=== PATIENT | male | born 1980 | race Caucasian/White ===

== ENCOUNTER 2021-08-16 04:07 | Inpatient (IN) | payer OTHER ==
[2021-08-16] MEDS ORDERED: hydrALAZINE 20 MG/ML VIAL SLOW IVP PRN (04:17)
[2021-08-16] MEDS ORDERED: Dextrose 50% Abboject 50 ML SYRINGE SLOW IVP PRN (04:17)
[2021-08-16] MEDS ORDERED: Ondansetron ODT 4 MG TAB PO PRN (04:17)
[2021-08-16] MEDS ORDERED: traMADol HCl 50 MG TAB PO PRN ×2 (04:20)
[2021-08-16 04:55] LABS: #Lymphocytes 1.3 thou/uL (1.20-3.40); #Monocytes 1.2 thou/uL (0.11-0.59); #Neutrophils 16.3 thou/uL (1.40-6.50); %Eosinophils 0.1 % (0.0-10.0); %Lymphocytes 6.8 % (21.0-51.0); %Monocytes 6.4 % (0.0-10.0); %Neutrophils 86.5 % (42.0-75.0); Hemoglobin 15.6 g/dL (14.0-18.0); Mean Corpuscular HGB CONC 32.3 g/dL (32.0-36.0); Mean Corpuscular Hemoglobin 30.2 pg (27.0-31.0); Mean Corpuscular Volume 93.6 fL (78.0-98.0); Mean Platelet Volume 7.9 fL (7.4-10.4); Platelet Count 266 thou/uL (130-400); RBC Distribution Width 12.3 % (11.5-14.5); Red Blood Cell (RBC) Count 5.16 mill/uL (4.70-6.10); White Blood Cell (WBC) Count 18.9 thou/uL (4.8-10.8)
[2021-08-16 05:09] LABS: Lactic Acid 2.6 mmol/L (0.5-2.2)
[2021-08-16 05:10] LABS: ALT (SGPT) 15 U/L (8-55); AST (SGOT) 23 U/L (5-34); Albumin 3.8 g/dL (3.5-5.0); Alkaline Phosphatase 48 U/L (40-110); Anion Gap 17 mmol/L (10-20); BUN (Urea Nitrogen) 39 mg/dL (8.9-20.6); Bilirubin, Total 1.2 mg/dL (0.2-1.2); Calc. Creatinine Clearance 0 mL/min (70-130); Calcium 7.8 mg/dL (7.8-10.44); Carbon Dioxide 13 mmol/L (22-29); Chloride 107 mmol/L (98-107); Globulin 2.7 g/dL (2.4-3.5); Glucose 175 mg/dL (70-105); Magnesium 1.7 mg/dL (1.6-2.6); Phosphorus 3.6 mg/dL (2.3-4.7); Potassium 5.4 mmol/L (3.5-5.1); Protein, Total 6.5 g/dL (6.0-8.3); Sodium 132 mmol/L (136-145)
[2021-08-16] MEDS ORDERED: Morphine 4 MG/ML VIAL ONE ×5 (05:27→14:51)
[2021-08-16] MEDS ORDERED: Acetaminophen 325 MG TAB ONE ×2 (05:27→13:57)
[2021-08-16] MEDS: Acetaminophen 325 MG TAB PO SCH ×4 (05:39→19:38)
[2021-08-16] MEDS: Sodium Chloride 0.9% 1,000 ML IV SCH ×4 (05:40→19:37)
[2021-08-16] MEDS: Morphine 4 MG/ML VIAL SLOW IVP PRN ×6 (05:40→23:14)
[2021-08-16] MEDS ORDERED: traMADol HCl 50 MG TAB ONE (07:23)
[2021-08-16] MEDS: Famotidine/PF 20 mg/2ml Vial SLOW IVP SCH ×2 (10:00→19:38)
[2021-08-16 13:30] LABS: Hemoglobin 15.9 g/dL (14.0-18.0); Mean Corpuscular HGB CONC 33.8 g/dL (32.0-36.0); Mean Corpuscular Hemoglobin 31.7 pg (27.0-31.0); Mean Corpuscular Volume 93.8 fL (78.0-98.0); Mean Platelet Volume 8.2 fL (7.4-10.4); Platelet Count 259 thou/uL (130-400); RBC Distribution Width 12.6 % (11.5-14.5); Red Blood Cell (RBC) Count 5.02 mill/uL (4.70-6.10); White Blood Cell (WBC) Count 10.9 thou/uL (4.8-10.8)
[2021-08-16 13:48] LABS: Phosphorus 4.1 mg/dL (2.3-4.7)
[2021-08-16 13:56] LABS: MDiff Complete? YES
[2021-08-16 13:57] LABS: Band 55 % (5-11); Lymphocytes 8 % (21-51); Metamyelocyte 5 % (0-0); Monocytes 12 % (0-10); Myelocyte 2 % (0-0); Neutrophil 16 % (42-75); Platelet Morphology Comment Appears Adequate; Polychromasia SLIGHT = 2-3 cells (100X) (0-2/hpf); Reactive Lymphocytes 2 % (0-10); Reflex for Review?? YES
[2021-08-16 14:03] LABS: Anion Gap 17 mmol/L (10-20); BUN (Urea Nitrogen) 47 mg/dL (8.9-20.6); Calc. Creatinine Clearance 0 mL/min (70-130); Calcium 7.9 mg/dL (7.8-10.44); Carbon Dioxide 17 mmol/L (22-29); Chloride 105 mmol/L (98-107); Glucose 182 mg/dL (70-105); Magnesium 1.7 mg/dL (1.6-2.6); Potassium 5.2 mmol/L (3.5-5.1); Sodium 134 mmol/L (136-145)
[2021-08-16] MEDS ORDERED: Tamsulosin HCl 0.4 MG CAP PO SCH (15:30)
[2021-08-16 15:40] LABS: Bacteria/HPF None Seen HPF (None Seen); Bilirubin Negative (Negative); Blood, Urine 1+ (Negative); Clarity Clear (Clear); Glucose, Urine (Dipstick) Normal (Negative); Ketone, Urine Trace mg/dL (Negative); Leukocyte Negative Leu/uL (Negative); Nitrite Negative (Negative); Protein, Urine (Dipstick) 30 mg/dL (Neg-Trace); RBC/HPF 0-3 HPF (0-3); Specific Gravity, Urine 1.049 (1.002-1.036); Squamous Epithelial 0-3 HPF (0-3); Urobilinogen Normal mg/dL (Less than 2); WBC/HPF 0-3 HPF (0-3); pH, Urine 5.5 (5.0-9.0)
[2021-08-16 15:45] LABS: Urine Culture Reflex No No
[2021-08-16] MEDS ORDERED: Calcium Carbonate 500 MG ChewTAB PO PRN (17:43)
[2021-08-16] MEDS: traMADol HCl 50 MG TAB PO SCH ×3 (18:52→22:12)
[2021-08-16] MEDS: Tamsulosin HCl 0.4 MG CAP PO SCH (19:37)
[2021-08-16] MEDS: Cyclobenzaprine 10 MG TAB PO PRN (23:43)
[2021-08-17] MEDS: Morphine 4 MG/ML VIAL SLOW IVP PRN ×4 (01:05→06:33)
[2021-08-17] MEDS: traMADol HCl 50 MG TAB PO SCH ×3 (02:45→15:49)
[2021-08-17] MEDS: Ondansetron PF 4 MG/2 ML Vial IVP PRN (03:00)
[2021-08-17] MEDS: Acetaminophen 325 MG TAB PO SCH ×3 (04:46→18:05)
[2021-08-17] MEDS: Cyclobenzaprine 10 MG TAB PO PRN (06:36)
[2021-08-17 08:55] LABS: Chloride 107 mmol/L (98-107); Potassium 5.9 mmol/L (3.5-5.1); Sodium 133 mmol/L (136-145)
[2021-08-17 08:56] LABS: Calcium 8.4 mg/dL (7.8-10.44); Glucose 105 mg/dL (70-105)
[2021-08-17 08:58] LABS: Anion Gap 21 mmol/L (10-20); Carbon Dioxide 11 mmol/L (22-29)
[2021-08-17 09:00] LABS: BUN (Urea Nitrogen) 73 mg/dL (8.9-20.6); Calc. Creatinine Clearance 43 mL/min (70-130)
[2021-08-17 09:07] LABS: Hemoglobin 16.4 g/dL (14.0-18.0); Mean Corpuscular Hemoglobin 31.6 pg (27.0-31.0); Mean Corpuscular Volume 95.8 fL (78.0-98.0); Platelet Count 189 thou/uL (130-400); RBC Distribution Width 13.1 % (11.5-14.5); Red Blood Cell (RBC) Count 5.19 mill/uL (4.70-6.10); White Blood Cell (WBC) Count 6.2 thou/uL (4.8-10.8)
[2021-08-17 09:40] LABS: Magnesium 1.6 mg/dL (1.6-2.6); Phosphorus 5.1 mg/dL (2.3-4.7)
[2021-08-17 09:41] LABS: Band 48 % (5-11); Burr Cells MODERATE= 6-15 cells (100X) (0-1/hpf); Dohle Bodies SLIGHT; Lymphocytes 14 % (21-51); MDiff Complete? YES; Metamyelocyte 15 % (0-0); Monocytes 12 % (0-10); Myelocyte 4 % (0-0); Neutrophil 4 % (42-75); Platelet Morphology Comment Appears Adequate; Polychromasia SLIGHT = 2-3 cells (100X) (0-2/hpf); Reactive Lymphocytes 3 % (0-10); Reflex for Review?? YES; Vacuoles MODERATE
[2021-08-17] MEDS: Famotidine/PF 20 mg/2ml Vial SLOW IVP SCH (09:48)
[2021-08-17] MEDS ORDERED: Sodium Chloride 0.9% 500 ML IV SCH (10:15)
[2021-08-17] MEDS ORDERED: Sodium Bicarb 50 MEQ/50 ML Abboject 8.4% SYRINGE IVP SCH (12:15)
[2021-08-17 13:43] LABS: HBSAg Index 0.22 S/CO (0-0.99); Hep B Surf Ag Non-Reactive S/CO (NonReactive)
[2021-08-17 13:43] LABS: INR-International Normal Ratio 2.1; PTT 44.6 sec (22.9-36.1); Prothrombin Time 23.8 sec (12.0-14.7)
[2021-08-17] MEDS ORDERED: EPINEPHrine 1 MG/ML AMP ONE (13:52)
[2021-08-17] MEDS ORDERED: Bupivacaine 0.25% HCL 30 ML VIAL ONE (13:52)
[2021-08-17 13:57] LABS: Lactic Acid 8.8 mmol/L (0.5-2.2)
[2021-08-17] MEDS ORDERED: ceFAZolin 2 GM/DEX 5% 100 ML BAG ONE (14:14)
[2021-08-17] MEDS ORDERED: Fentanyl 250 MCG/5 ML VIAL ONE (14:27)
[2021-08-17] MEDS ORDERED: Lidocaine 2% Jelly 5 ML TUBE ONE (14:27)
[2021-08-17] MEDS ORDERED: Lidocaine 1% PF 5 ML VIAL ONE (14:40)
[2021-08-17] MEDS ORDERED: Vecuronium 10 MG VIAL ONE (14:40)
[2021-08-17] MEDS ORDERED: PHENYLEPHRINE-NS 100 MCG/ML 10 ML SYRINGE ONE (14:40)
[2021-08-17] MEDS ORDERED: Rocuronium Bromide 10 MG/ML (10ML VIAL) ONE (14:40)
[2021-08-17] MEDS ORDERED: Phenylephrine 10 MG/ML VIAL ONE (15:05)
[2021-08-17] MEDS ORDERED: Norepinephrine 4 MG/4 ML VIAL ONE (15:15)
[2021-08-17 15:21] LABS: Hep A IgM AB Non-Reactive (NonReactive); Hep C IgG Ab Non-Reactive (NonReactive); Hep C Index 0.03 S/CO (0-0.79)
[2021-08-17 15:22] LABS: HBCM Index 0.07 S/CO (0-0.79); Hepatitis B Core IgM Abs Non-Reactive (NonReactive)
[2021-08-17] MEDS: Sodium Chloride 0.9% 1,000 ML IV SCH (15:50)
[2021-08-17] MEDS ORDERED: Sodium Chloride 0.9% 20 ML ONE (15:55)
[2021-08-17] MEDS ORDERED: Albumin 5% 500 ML ONE (16:05)
[2021-08-17] MEDS ORDERED: Midazolam HCl 2 mg/2 ml Vial ONE (16:41)
[2021-08-17] MEDS ORDERED: Sodium Bicarbonate 2.5 MEQ/5 ML VIAL ONE (16:47)
[2021-08-17] MEDS ORDERED: Dextrose 50% Abboject 50 ML SYRINGE ONE (16:47)
[2021-08-17] MEDS ORDERED: Sodium Bicarb 50 MEQ/50 ML Abboject 8.4% SYRINGE ONE ×2 (16:47→17:44)
[2021-08-17] MEDS ORDERED: Ventilator Sedation Protocol 1 EACH FS ONE (17:24)
[2021-08-17] MEDS ORDERED: Propofol 1,000 MG/100 ML VIAL IV ONE (17:30)
[2021-08-17] MEDS ORDERED: Fentanyl 100 MCG/2 ML VIAL ONE (17:30)
[2021-08-17 17:33] LABS: Base Excess (BEa) -10.9 mEq/L (-2.0 to +3.0); CO2 Tension 54.2 mmHg (35.0-45.0); Calcium, Ionized (arterial) 1.07 mmol/L (1.12-1.30); Carboxyhemoglobin (COHb) 1.7 gm% (0.0-3.0); Potassium - ABG Lab 4.03 mmol/L (3.70-5.30)
[2021-08-17 17:34] LABS: pH, Arterial 7.14 (7.35-7.45)
[2021-08-17 17:35] LABS: Puncture Site Arterial Line
[2021-08-17] MEDS ORDERED: DISCONTINUE PREVIOUS NARCOTIC PAIN MEDICATIONS AND BENZODIAZEPINES FS SCH (17:45)
[2021-08-17] MEDS ORDERED: Morphine 2 MG/ML VIAL SLOW IVP PRN (17:45)
[2021-08-17] MEDS ORDERED: Morphine 4 MG/ML VIAL SLOW IVP PRN (17:45)
[2021-08-17] MEDS ORDERED: Propofol BOLUS 1,000 MG/100 ML VIAL IV PRN (17:45)
[2021-08-17] MEDS ORDERED: Fentanyl BOLUS 250 ML IVPB PRN (17:45)
[2021-08-17] MEDS ORDERED: Calcium Chloride 1 GM/10 ML Abboject SYRINGE ONE (17:45)
[2021-08-17] MEDS ORDERED: Lorazepam 2 MG/ML VIAL SLOW IVP PRN (17:45)
[2021-08-17] MEDS: Propofol 1,000 MG/100 ML VIAL IV PRN (17:45)
[2021-08-17] MEDS ORDERED: Fentanyl CADD 100 ML ONE (17:46)
[2021-08-17] MEDS: Fentanyl CADD 100 ML IV SCH (17:51)
[2021-08-17 17:55] LABS: Hemoglobin 12.5 g/dL (14.0-18.0); Mean Corpuscular HGB CONC 33.7 g/dL (32.0-36.0); Mean Corpuscular Hemoglobin 32.4 pg (27.0-31.0); Platelet Count 127 thou/uL (130-400); RBC Distribution Width 12.9 % (11.5-14.5); Red Blood Cell (RBC) Count 3.85 mill/uL (4.70-6.10); White Blood Cell (WBC) Count 2.2 thou/uL (4.8-10.8)
[2021-08-17] MEDS ORDERED: Piperacillin/Tazobactam 3.375 GM in Sodium Chloride 0.9% 100 ML IVPB SCH (18:00)
[2021-08-17 18:14] LABS: Lactic Acid 7.5 mmol/L (0.5-2.2)
[2021-08-17 18:15] LABS: ALT (SGPT) 35 U/L (8-55); AST (SGOT) 58 U/L (5-34); Albumin 2.2 g/dL (3.5-5.0); Alkaline Phosphatase 44 U/L (40-110); Anion Gap 17 mmol/L (10-20); BUN (Urea Nitrogen) 61 mg/dL (8.9-20.6); Bilirubin, Total 1.2 mg/dL (0.2-1.2); Calc. Creatinine Clearance 47 mL/min (70-130); Carbon Dioxide 16 mmol/L (22-29); Chloride 110 mmol/L (98-107); Glucose 85 mg/dL (70-105); Magnesium 1.6 mg/dL (1.6-2.6); Phosphorus 5.2 mg/dL (2.3-4.7); Potassium 4.2 mmol/L (3.5-5.1); Protein, Total 3.2 g/dL (6.0-8.3); Sodium 139 mmol/L (136-145)
[2021-08-17] MEDS ORDERED: ceFAZolin Sodium/D5W 2 GM in Premix Bag 1 BAG IVPB SCH (18:15)
[2021-08-17 18:22] LABS: Band 63 % (5-11); Burr Cells SLIGHT = 2-5 cells (100X) (0-1/hpf); Lymphocytes 15 % (21-51); MDiff Complete? YES; Metamyelocyte 4 % (0-0); Monocytes 12 % (0-10); Myelocyte 1 % (0-0); Neutrophil 5 % (42-75); Platelet Morphology Comment Appears Decreased; Polychromasia SLIGHT = 2-3 cells (100X) (0-2/hpf)
[2021-08-17] MEDS ORDERED: Norepinephrine 8 MG/0.9% NS 250 ML IVPB SCH (18:30)
[2021-08-17] MEDS ORDERED: Hydrocortisone Sod Succ/PF 100 mg/2 ml Vial IVP SCH (18:30)
[2021-08-17 18:38] LABS: Actual Bicarbonate (HCO3a) 18.9 mEq/L (22-28); Base Excess (BEa) -7.5 mEq/L (-2.0 to +3.0); CO2 Tension 42.3 mmHg (35.0-45.0); Calcium, Ionized (arterial) 1.24 mmol/L (1.12-1.30); Carboxyhemoglobin (COHb) 1.2 gm% (0.0-3.0); Hemoglobin (Hb) 10.8 g/dL (14.0-18.0); O2 Tension (PaO2), arterial 64.1 mmHg (80.0-100.0); Potassium - ABG Lab 3.91 mmol/L (3.70-5.30); pH, Arterial 7.27 (7.35-7.45)
[2021-08-17 18:40] LABS: Puncture Site Arterial Line
[2021-08-17 18:41] LABS: ALV-art Gradient 596.025 mmHg (0-20)
[2021-08-17] MEDS ORDERED: Sodium Chloride 0.9% 1,000 ML IV SCH (18:45)
[2021-08-17] MEDS: Sodium Bicarbonate 150 MEQ in Dextrose 5% in Water 1,000 ML IV SCH (19:02)
[2021-08-17] MEDS: Tamsulosin HCl 0.4 MG CAP PO SCH (20:35)
[2021-08-17] MEDS ORDERED: Dextrose 50% Abboject 50 ML SYRINGE SLOW IVP SCH (20:45)
[2021-08-17] MEDS: Norepinephrine 8 MG in Dextrose 5% in Water 242 ML IVPB SCH (20:50)
[2021-08-17] MEDS: Piperacillin/Tazobactam 3.375 GM in Sodium Chloride 0.9% 100 ML IVPB SCH (21:07)
[2021-08-17 21:39] LABS: Hemoglobin 10.9 g/dL (14.0-18.0); Platelet Count 123 thou/uL (130-400)
[2021-08-17 21:51] LABS: Fibrinogen 497 mg/dL (253-463)
[2021-08-17 21:52] LABS: INR-International Normal Ratio 2.4; PTT 56.2 sec (22.9-36.1); Prothrombin Time 26.3 sec (12.0-14.7)
[2021-08-17 21:53] LABS: D-Dimer Test 3.37 *mcg/mL (0.27-0.43)
[2021-08-17 22:19] LABS: FSP-Qualitative ABNORMAL (Normal); FSP-Semiquantitative >=5 & <20 mcg/mL (Less than 5)
[2021-08-17 22:21] LABS: Platelet Count 123 thou/uL (130-400)
[2021-08-18] MEDS: Hydrocortisone Sod Succ/PF 100 mg/2 ml Vial IVP SCH ×5 (00:51→23:50)
[2021-08-18] MEDS: Sodium Bicarbonate 150 MEQ in Dextrose 5% in Water 1,000 ML IV SCH ×4 (00:57→21:21)
[2021-08-18] MEDS: Acetaminophen 650 MG Suppository PR PRN (01:36)
[2021-08-18 03:48] LABS: INR-International Normal Ratio 1.9; Prothrombin Time 21.9 sec (12.0-14.7)
[2021-08-18 03:49] LABS: PTT 54.6 sec (22.9-36.1)
[2021-08-18 03:57] LABS: Band 31 % (5-11); Eosinophils 1 % (0-10); Hemoglobin 11.2 g/dL (14.0-18.0); Lymphocytes 11 % (21-51); MDiff Complete? YES; Mean Corpuscular HGB CONC 33.7 g/dL (32.0-36.0); Mean Corpuscular Volume 94.8 fL (78.0-98.0); Mean Platelet Volume 9.5 fL (7.4-10.4); Metamyelocyte 7 % (0-0); Monocytes 5 % (0-10); Myelocyte 5 % (0-0); Neutrophil 40 % (42-75); Platelet Count 131 thou/uL (130-400); Red Blood Cell (RBC) Count 3.52 mill/uL (4.70-6.10); White Blood Cell (WBC) Count 5.3 thou/uL (4.8-10.8)
[2021-08-18] MEDS ORDERED: Fentanyl CADD 100 ML ONE ×3 (04:01→23:43)
[2021-08-18 04:02] LABS: Lactic Acid 7.3 mmol/L (0.5-2.2)
[2021-08-18 04:06] LABS: ALT (SGPT) 108 U/L (8-55); AST (SGOT) 150 U/L (5-34); Albumin 2.6 g/dL (3.5-5.0); Alkaline Phosphatase 47 U/L (40-110); Anion Gap 18 mmol/L (10-20); BUN (Urea Nitrogen) 63 mg/dL (8.9-20.6); Bilirubin, Total 1.2 mg/dL (0.2-1.2); Calc. Creatinine Clearance 51 mL/min (70-130); Carbon Dioxide 21 mmol/L (22-29); Chloride 106 mmol/L (98-107); Globulin 1.3 g/dL (2.4-3.5); Glucose 128 mg/dL (70-105); Magnesium 1.4 mg/dL (1.6-2.6); Phosphorus 4.1 mg/dL (2.3-4.7); Protein, Total 3.9 g/dL (6.0-8.3); Sodium 140 mmol/L (136-145)
[2021-08-18] MEDS: Fentanyl CADD 100 ML IV SCH ×3 (04:12→23:50)
[2021-08-18] MEDS ORDERED: Magnesium Sulfate 3 GM in Sodium Chloride 0.9% 250 ML 250 ML IVPB SCH (05:00)
[2021-08-18] MEDS: Piperacillin/Tazobactam 3.375 GM in Sodium Chloride 0.9% 100 ML IVPB SCH ×3 (05:04→21:20)
[2021-08-18 07:55] LABS: Actual Bicarbonate (HCO3a) 20.9 mEq/L (22-28); Base Excess (BEa) -4.1 mEq/L (-2.0 to +3.0); CO2 Tension 38.5 mmHg (35.0-45.0); Calcium, Ionized (arterial) 1.08 mmol/L (1.12-1.30); Carboxyhemoglobin (COHb) 0.9 gm% (0.0-3.0); Hemoglobin (Hb) 16.9 g/dL (14.0-18.0); O2 Tension (PaO2), arterial 139.8 mmHg (80.0-100.0); Potassium - ABG Lab 4.85 mmol/L (3.70-5.30); pH, Arterial 7.35 (7.35-7.45)
[2021-08-18 08:01] LABS: ALV-art Gradient 525.075 mmHg (0-20); Puncture Site Arterial Line
[2021-08-18] MEDS ORDERED: Famotidine/PF 20 mg/2ml Vial SLOW IVP SCH (09:00)
[2021-08-18] MEDS ORDERED: Albumin 5% 500 ML ONE (09:29)
[2021-08-18] MEDS ORDERED: Calcium Chloride 1 GM/10 ML Abboject SYRINGE ONE ×2 (09:30→09:31)
[2021-08-18] MEDS: Micafungin 100 MG in Sodium Chloride 0.9% 100 ML IVPB SCH (09:40)
[2021-08-18] MEDS ORDERED: Midazolam HCl 2 mg/2 ml Vial ONE (11:17)
[2021-08-18] MEDS ORDERED: Fentanyl 100 MCG/2 ML VIAL ONE (11:17)
[2021-08-18] MEDS ORDERED: Rocuronium Bromide 10 MG/ML (10ML VIAL) ONE (11:35)
[2021-08-18] MEDS ORDERED: Midazolam HCl 5 mg/5 ml Vial ONE (12:08)
[2021-08-18] MEDS ORDERED: Albumin 5% 250 ML ONE (12:30)
[2021-08-18] MEDS: Norepinephrine 8 MG in Dextrose 5% in Water 242 ML IVPB SCH (16:11)
[2021-08-18 19:40] LABS: Actual Bicarbonate (HCO3a) 30.7 mEq/L (22-28); Base Excess (BEa) 5.4 mEq/L (-2.0 to +3.0); CO2 Tension 49.1 mmHg (35.0-45.0); Calcium, Ionized (arterial) 1.04 mmol/L (1.12-1.30); Carboxyhemoglobin (COHb) 0.8 gm% (0.0-3.0); Hemoglobin (Hb) 9.7 g/dL (14.0-18.0); O2 Tension (PaO2), arterial 101.4 mmHg (80.0-100.0); pH, Arterial 7.41 (7.35-7.45)
[2021-08-18 19:42] LABS: Hemoglobin 9.9 g/dL (14.0-18.0); Mean Corpuscular HGB CONC 33.7 g/dL (32.0-36.0); Mean Corpuscular Hemoglobin 32.1 pg (27.0-31.0); Mean Corpuscular Volume 95.5 fL (78.0-98.0); Mean Platelet Volume 9.1 fL (7.4-10.4); Platelet Count 73 thou/uL (130-400); RBC Distribution Width 13.2 % (11.5-14.5); Red Blood Cell (RBC) Count 3.07 mill/uL (4.70-6.10); White Blood Cell (WBC) Count 6.5 thou/uL (4.8-10.8)
[2021-08-18 19:47] LABS: Puncture Site Arterial Line
[2021-08-18 19:48] LABS: ALV-art Gradient 407.625 mmHg (0-20)
[2021-08-18 19:53] LABS: Band 15 % (5-11); Hypochromia SLIGHT = 6-15 cells (100X) (0-5/hpf); Lymphocytes 13 % (21-51); MDiff Complete? YES; Monocytes 23 % (0-10); Neutrophil 49 % (42-75); Platelet Morphology Comment Appears Decreased
[2021-08-18 20:00] LABS: Anion Gap 16 mmol/L (10-20); BUN (Urea Nitrogen) 52 mg/dL (8.9-20.6); Calc. Creatinine Clearance 66 mL/min (70-130); Calcium 7.9 mg/dL (7.8-10.44); Carbon Dioxide 29 mmol/L (22-29); Chloride 101 mmol/L (98-107); Glucose 137 mg/dL (70-105); Magnesium 2.3 mg/dL (1.6-2.6); Phosphorus 3.7 mg/dL (2.3-4.7); Potassium 4.9 mmol/L (3.5-5.1); Sodium 141 mmol/L (136-145)
[2021-08-18 20:01] LABS: Lactic Acid 6.2 mmol/L (0.5-2.2)
[2021-08-18] MEDS ORDERED: Calcium Chloride 1 GM/10 ML Abboject SYRINGE IVP SCH (21:00)
[2021-08-19] MEDS: Norepinephrine 8 MG in Dextrose 5% in Water 242 ML IVPB SCH ×2 (01:50→20:03)
[2021-08-19] MEDS: Sodium Bicarbonate 150 MEQ in Dextrose 5% in Water 1,000 ML IV SCH (02:52)
[2021-08-19] MEDS: Acetaminophen 650 MG Suppository PR PRN ×2 (04:30→17:50)
[2021-08-19 05:09] LABS: Hemoglobin 8.7 g/dL (14.0-18.0); Mean Corpuscular HGB CONC 32.7 g/dL (32.0-36.0); Mean Corpuscular Hemoglobin 31.3 pg (27.0-31.0); Mean Corpuscular Volume 95.6 fL (78.0-98.0); Platelet Count 64 thou/uL (130-400); RBC Distribution Width 13.1 % (11.5-14.5); White Blood Cell (WBC) Count 5.9 thou/uL (4.8-10.8)
[2021-08-19 05:10] LABS: Band 12 % (5-11); Hypochromia SLIGHT = 6-15 cells (100X) (0-5/hpf); Lymphocytes 17 % (21-51); MDiff Complete? YES; Monocytes 18 % (0-10); Neutrophil 53 % (42-75); Platelet Morphology Comment Appears Decreased
[2021-08-19 05:14] LABS: Lactic Acid 5.4 mmol/L (0.5-2.2)
[2021-08-19 05:24] LABS: ALT (SGPT) 91 U/L (8-55); AST (SGOT) 140 U/L (5-34); Albumin 2.3 g/dL (3.5-5.0); Alkaline Phosphatase 48 U/L (40-110); Anion Gap 15 mmol/L (10-20); BUN (Urea Nitrogen) 49 mg/dL (8.9-20.6); Calc. Creatinine Clearance 71 mL/min (70-130); Calcium 8.7 mg/dL (7.8-10.44); Carbon Dioxide 33 mmol/L (22-29); Chloride 98 mmol/L (98-107); Globulin 1.3 g/dL (2.4-3.5); Glucose 126 mg/dL (70-105); Magnesium 2.2 mg/dL (1.6-2.6); Phosphorus 3.2 mg/dL (2.3-4.7); Potassium 4.5 mmol/L (3.5-5.1); Protein, Total 3.6 g/dL (6.0-8.3); Sodium 141 mmol/L (136-145)
[2021-08-19] MEDS: Hydrocortisone Sod Succ/PF 100 mg/2 ml Vial IVP SCH ×4 (05:40→23:47)
[2021-08-19] MEDS: Piperacillin/Tazobactam 3.375 GM in Sodium Chloride 0.9% 100 ML IVPB SCH ×3 (05:41→21:18)
[2021-08-19] MEDS ORDERED: Enoxaparin Sodium 30 MG/0.3 ML SYRINGE SC SCH (09:00)
[2021-08-19] MEDS ORDERED: Fentanyl CADD 100 ML ONE (09:25)
[2021-08-19] MEDS: Dextrose 5 %-0.45 % NaCl 1,000 ML IV SCH ×3 (09:28→22:35)
[2021-08-19] MEDS: Fentanyl CADD 100 ML IV SCH (09:28)
[2021-08-19] MEDS: Famotidine/PF 20 mg/2ml Vial SLOW IVP SCH ×2 (09:30→20:14)
[2021-08-19] MEDS: Micafungin 100 MG in Sodium Chloride 0.9% 100 ML IVPB SCH (09:31)
[2021-08-19 14:12] LABS: Actual Bicarbonate (HCO3a) 34.5 mEq/L (22-28); Base Excess (BEa) 11.1 mEq/L (-2.0 to +3.0); CO2 Tension 40.4 mmHg (35.0-45.0); Calcium, Ionized (arterial) 1.09 mmol/L (1.12-1.30); Carboxyhemoglobin (COHb) 0.8 gm% (0.0-3.0); Hemoglobin (Hb) 8.8 g/dL (14.0-18.0); O2 Tension (PaO2), arterial 104.8 mmHg (80.0-100.0); Potassium - ABG Lab 4.11 mmol/L (3.70-5.30)
[2021-08-19 14:13] LABS: pH, Arterial 7.55 (7.35-7.45)
[2021-08-19 14:14] LABS: Puncture Site RRA
[2021-08-19] MEDS ORDERED: Calcium Chloride 1 GM/10 ML Abboject SYRINGE IVP SCH ×2 (14:45→19:45)
[2021-08-19 20:16] LABS: Lactic Acid 3.8 mmol/L (0.5-2.2)
[2021-08-19 20:49] LABS: Phosphorus 2.7 mg/dL (2.3-4.7)
[2021-08-19 20:58] LABS: Anion Gap 13 mmol/L (10-20); BUN (Urea Nitrogen) 45 mg/dL (8.9-20.6); Calc. Creatinine Clearance 70 mL/min (70-130); Calcium 11.4 mg/dL (7.8-10.44); Carbon Dioxide 32 mmol/L (22-29); Chloride 100 mmol/L (98-107); Glucose 157 mg/dL (70-105); Magnesium 2.6 mg/dL (1.6-2.6); Potassium 4.4 mmol/L (3.5-5.1); Sodium 141 mmol/L (136-145)
[2021-08-19 21:04] LABS: Band 18 % (5-11); Hemoglobin 8.2 g/dL (14.0-18.0); Hypochromia SLIGHT = 6-15 cells (100X) (0-5/hpf); Lymphocytes 14 % (21-51); MDiff Complete? YES; Mean Corpuscular HGB CONC 32.5 g/dL (32.0-36.0); Mean Corpuscular Hemoglobin 31.6 pg (27.0-31.0); Mean Corpuscular Volume 97.2 fL (78.0-98.0); Mean Platelet Volume 10.6 fL (7.4-10.4); Metamyelocyte 2 % (0-0); Monocytes 5 % (0-10); Myelocyte 2 % (0-0); Neutrophil 59 % (42-75); Platelet Count 57 thou/uL (130-400); Platelet Morphology Comment Appears Adequate; RBC Distribution Width 13.2 % (11.5-14.5); Red Blood Cell (RBC) Count 2.58 mill/uL (4.70-6.10); White Blood Cell (WBC) Count 7.6 thou/uL (4.8-10.8)
[2021-08-19 21:40] LABS: Actual Bicarbonate (HCO3a) 31.5 mEq/L (22-28); Base Excess (BEa) 8.6 mEq/L (-2.0 to +3.0); CO2 Tension 36.1 mmHg (35.0-45.0); Calcium, Ionized (arterial) 1.19 mmol/L (1.12-1.30); Carboxyhemoglobin (COHb) 0.9 gm% (0.0-3.0); Hemoglobin (Hb) 7.3 g/dL (14.0-18.0); O2 Tension (PaO2), arterial 114.2 mmHg (80.0-100.0)
[2021-08-19 21:41] LABS: ALV-art Gradient 197.175 mmHg (0-20); Puncture Site Arterial Line; pH, Arterial 7.56 (7.35-7.45)
[2021-08-20] MEDS: Acetaminophen 650 MG Suppository PR PRN ×2 (00:37→06:04)
[2021-08-20] MEDS: Dextrose 5 %-0.45 % NaCl 1,000 ML IV SCH ×3 (05:18→20:09)
[2021-08-20] MEDS: Piperacillin/Tazobactam 3.375 GM in Sodium Chloride 0.9% 100 ML IVPB SCH ×3 (05:25→21:08)
[2021-08-20] MEDS: Hydrocortisone Sod Succ/PF 100 mg/2 ml Vial IVP SCH ×3 (05:25→17:34)
[2021-08-20] MEDS: Norepinephrine 8 MG in Dextrose 5% in Water 242 ML IVPB SCH (05:26)
[2021-08-20] MEDS ORDERED: Fentanyl CADD 100 ML ONE (06:34)
[2021-08-20] MEDS: Fentanyl CADD 100 ML IV SCH (06:38)
[2021-08-20 07:42] LABS: Hemoglobin 8.7 g/dL (14.0-18.0); Mean Corpuscular HGB CONC 32.4 g/dL (32.0-36.0); Mean Corpuscular Hemoglobin 30.8 pg (27.0-31.0); Mean Corpuscular Volume 95.3 fL (78.0-98.0); Mean Platelet Volume 10.8 fL (7.4-10.4); Platelet Count 58 thou/uL (130-400); RBC Distribution Width 14.1 % (11.5-14.5); Red Blood Cell (RBC) Count 2.83 mill/uL (4.70-6.10); White Blood Cell (WBC) Count 8.7 thou/uL (4.8-10.8)
[2021-08-20] MEDS ORDERED: Fentanyl 100 MCG/2 ML VIAL ONE (07:44)
[2021-08-20 07:49] LABS: INR-International Normal Ratio 1.1; PTT 42.2 sec (22.9-36.1); Prothrombin Time 14.2 sec (12.0-14.7)
[2021-08-20 08:04] LABS: Band 11 % (5-11); Lymphocytes 14 % (21-51); MDiff Complete? YES; Monocytes 25 % (0-10); Neutrophil 50 % (42-75); Nucleated RBC 7 % (0); Platelet Morphology Comment Appears Decreased; Polychromasia SLIGHT = 2-3 cells (100X) (0-2/hpf); Vacuoles SLIGHT
[2021-08-20 08:05] LABS: Anion Gap 15 mmol/L (10-20); BUN (Urea Nitrogen) 45 mg/dL (8.9-20.6); Calc. Creatinine Clearance 74 mL/min (70-130); Calcium 8.2 mg/dL (7.8-10.44); Carbon Dioxide 30 mmol/L (22-29); Chloride 100 mmol/L (98-107); Glucose 169 mg/dL (70-105); Magnesium 2.5 mg/dL (1.6-2.6); Phosphorus 2.8 mg/dL (2.3-4.7); Sodium 141 mmol/L (136-145)
[2021-08-20] MEDS ORDERED: Rocuronium Bromide 10 MG/ML (10ML VIAL) ONE (08:47)
[2021-08-20] MEDS ORDERED: PROPOFOL 200 MG/20 ML VIAL ONE (08:47)
[2021-08-20] MEDS ORDERED: Lidocaine 1% PF 5 ML VIAL ONE (08:47)
[2021-08-20] MEDS ORDERED: Piperacillin/Tazobactam 3.375 GM VIAL ONE (08:57)
[2021-08-20] MEDS ORDERED: Iopamidol 300 61% 100 ML VIAL FS ONE (10:15)
[2021-08-20] MEDS ORDERED: Iothalamate Meglumine 60% 50 ML VIAL FS ONE (10:17)
[2021-08-20 11:17] LABS: Actual Bicarbonate (HCO3a) 26.9 mEq/L (22-28); Base Excess (BEa) 1.8 mEq/L (-2.0 to +3.0); CO2 Tension 43.7 mmHg (35.0-45.0); Calcium, Ionized (arterial) 1.04 mmol/L (1.12-1.30); Carboxyhemoglobin (COHb) 0.9 gm% (0.0-3.0); Hemoglobin (Hb) 13.7 g/dL (14.0-18.0); O2 Tension (PaO2), arterial 80.6 mmHg (80.0-100.0); Potassium - ABG Lab 3.83 mmol/L (3.70-5.30); pH, Arterial 7.41 (7.35-7.45)
[2021-08-20 11:18] LABS: Puncture Site ALINE
[2021-08-20 11:22] LABS: ALV-art Gradient 221.275 mmHg (0-20)
[2021-08-20] MEDS ORDERED: Sodium Bicarb 50 MEQ/50 ML Abboject 8.4% SYRINGE IVP SCH (11:30)
[2021-08-20] MEDS ORDERED: Calcium Chloride 1 GM/10 ML Abboject SYRINGE IVP SCH (11:30)
[2021-08-20] MEDS: Micafungin 100 MG in Sodium Chloride 0.9% 100 ML IVPB SCH (11:36)
[2021-08-20] MEDS: Famotidine/PF 20 mg/2ml Vial SLOW IVP SCH ×2 (11:36→20:09)
[2021-08-20 11:44] LABS: Hemoglobin 9.7 g/dL (14.0-18.0); Mean Corpuscular HGB CONC 33.2 g/dL (32.0-36.0); Mean Corpuscular Hemoglobin 31.6 pg (27.0-31.0); Mean Corpuscular Volume 95.3 fL (78.0-98.0); Red Blood Cell (RBC) Count 3.07 mill/uL (4.70-6.10)
[2021-08-20 12:07] LABS: Mean Platelet Volume 10.1 fL (7.4-10.4); Platelet Count 53 thou/uL (130-400)
[2021-08-20 12:22] LABS: Anion Gap 16 mmol/L (10-20); BUN (Urea Nitrogen) 46 mg/dL (8.9-20.6); Calc. Creatinine Clearance 78 mL/min (70-130); Calcium 7.4 mg/dL (7.8-10.44); Carbon Dioxide 25 mmol/L (22-29); Chloride 104 mmol/L (98-107); Glucose 154 mg/dL (70-105); Magnesium 2.3 mg/dL (1.6-2.6); Phosphorus 3.9 mg/dL (2.3-4.7); Sodium 141 mmol/L (136-145)
[2021-08-20 12:33] LABS: Band 12 % (5-11); Dohle Bodies SLIGHT; Lymphocytes 10 % (21-51); MDiff Complete? YES; Metamyelocyte 2 % (0-0); Monocytes 8 % (0-10); Myelocyte 1 % (0-0); Neutrophil 67 % (42-75); Nucleated RBC 5 % (0); Ovalocytes SLIGHT = 2-5 cells (100X) (0-1/hpf); Platelet Morphology Comment Appears Decreased; Polychromasia SLIGHT = 2-3 cells (100X) (0-2/hpf); Tear Drops SLIGHT = 2-5 cells (100X) (0-1/hpf); Toxic Granulation SLIGHT; Vacuoles SLIGHT; White Blood Cell (WBC) Count 8.6 thou/uL (4.8-10.8)
[2021-08-20 16:41] LABS: Lactic Acid 2.4 mmol/L (0.5-2.2)
[2021-08-21] MEDS: Hydrocortisone Sod Succ/PF 100 mg/2 ml Vial IVP SCH ×5 (00:29→23:17)
[2021-08-21] MEDS: Dextrose 5 %-0.45 % NaCl 1,000 ML IV SCH ×2 (02:38→09:09)
[2021-08-21 04:36] LABS: Band 9 % (5-11); Hemoglobin 9.1 g/dL (14.0-18.0); Lymphocytes 11 % (21-51); MDiff Complete? YES; Mean Corpuscular Hemoglobin 31.6 pg (27.0-31.0); Mean Corpuscular Volume 95.7 fL (78.0-98.0); Mean Platelet Volume 10.7 fL (7.4-10.4); Metamyelocyte 1 % (0-0); Monocytes 13 % (0-10); Neutrophil 66 % (42-75); Nucleated RBC 1 % (0); Platelet Count 61 thou/uL (130-400); Platelet Morphology Comment Appears Decreased; Red Blood Cell (RBC) Count 2.88 mill/uL (4.70-6.10); White Blood Cell (WBC) Count 9.1 thou/uL (4.8-10.8)
[2021-08-21 05:02] LABS: Anion Gap 12 mmol/L (10-20); BUN (Urea Nitrogen) 45 mg/dL (8.9-20.6); Calc. Creatinine Clearance 93 mL/min (70-130); Calcium 7.6 mg/dL (7.8-10.44); Carbon Dioxide 30 mmol/L (22-29); Chloride 102 mmol/L (98-107); Glucose 174 mg/dL (70-105); Magnesium 2.5 mg/dL (1.6-2.6); Phosphorus 2.2 mg/dL (2.3-4.7); Potassium 3.8 mmol/L (3.5-5.1); Sodium 140 mmol/L (136-145)
[2021-08-21] MEDS: Piperacillin/Tazobactam 3.375 GM in Sodium Chloride 0.9% 100 ML IVPB SCH ×3 (05:47→21:55)
[2021-08-21] MEDS: Famotidine/PF 20 mg/2ml Vial SLOW IVP SCH (09:09)
[2021-08-21] MEDS: Micafungin 100 MG in Sodium Chloride 0.9% 100 ML IVPB SCH (09:09)
[2021-08-21] MEDS ORDERED: Fentanyl CADD 100 ML ONE ×2 (09:42→18:15)
[2021-08-21 10:39] LABS: Actual Bicarbonate (HCO3a) 31.2 mEq/L (22-28); Base Excess (BEa) 6.6 mEq/L (-2.0 to +3.0); CO2 Tension 44.8 mmHg (35.0-45.0); Calcium, Ionized (arterial) 1.06 mmol/L (1.12-1.30); Carboxyhemoglobin (COHb) 0.8 gm% (0.0-3.0); Hemoglobin (Hb) 12.8 g/dL (14.0-18.0); O2 Tension (PaO2), arterial 143.4 mmHg (80.0-100.0); Potassium - ABG Lab 3.59 mmol/L (3.70-5.30); pH, Arterial 7.46 (7.35-7.45)
[2021-08-21 10:43] LABS: Puncture Site ALINE
[2021-08-21] MEDS ORDERED: Calcium Chloride 1 GM/10 ML Abboject SYRINGE IVP SCH (11:00)
[2021-08-21] MEDS ORDERED: D5 1/2 NS w/20 mEq KCL 1,000 ML IV SCH ×2 (12:45→22:55)
[2021-08-21 13:10] LABS: Lactic Acid 1.8 mmol/L (0.5-2.2)
[2021-08-21] MEDS ORDERED: Electrolyte Replacement Protocol FS PRN (14:30)
[2021-08-21] MEDS ORDERED: Furosemide 20 MG/2 ML VIAL SLOW IVP SCH (21:15)
[2021-08-21] MEDS: Multivitamins, Adult 10 ML, TRACE ELEMENT CONCENTRATE 1 ML in D15W-AA 5% with Lytes 2,0... IV SCH (22:26)
[2021-08-22] MEDS ORDERED: Fentanyl CADD 100 ML ONE ×2 (03:44→16:44)
[2021-08-22] MEDS: Fentanyl CADD 100 ML IV SCH (03:52)
[2021-08-22] MEDS: Piperacillin/Tazobactam 3.375 GM in Sodium Chloride 0.9% 100 ML IVPB SCH ×3 (05:16→21:13)
[2021-08-22] MEDS: Hydrocortisone Sod Succ/PF 100 mg/2 ml Vial IVP SCH ×3 (05:16→16:49)
[2021-08-22] MEDS ORDERED: D5 1/2 NS w/20 mEq KCL 1,000 ML IV SCH (06:00)
[2021-08-22 06:38] LABS: Hemoglobin 8.8 g/dL (14.0-18.0); Mean Corpuscular HGB CONC 32.5 g/dL (32.0-36.0); Mean Corpuscular Hemoglobin 31.2 pg (27.0-31.0); Mean Platelet Volume 10.4 fL (7.4-10.4); Platelet Count 95 thou/uL (130-400); RBC Distribution Width 13.8 % (11.5-14.5); Red Blood Cell (RBC) Count 2.81 mill/uL (4.70-6.10); White Blood Cell (WBC) Count 11.8 thou/uL (4.8-10.8)
[2021-08-22 06:49] LABS: INR-International Normal Ratio 0.9; PTT 28.9 sec (22.9-36.1); Prothrombin Time 12.7 sec (12.0-14.7)
[2021-08-22 06:57] LABS: ALT (SGPT) 73 U/L (8-55); AST (SGOT) 136 U/L (5-34); Albumin 2.3 g/dL (3.5-5.0); Alkaline Phosphatase 48 U/L (40-110); Anion Gap 11 mmol/L (10-20); BUN (Urea Nitrogen) 47 mg/dL (8.9-20.6); Bilirubin, Total 4.5 mg/dL (0.2-1.2); Calc. Creatinine Clearance 113 mL/min (70-130); Calcium 7.7 mg/dL (7.8-10.44); Carbon Dioxide 30 mmol/L (22-29); Chloride 105 mmol/L (98-107); Cholesterol 67 mg/dl (< 200 Desired); Globulin 1.8 g/dL (2.4-3.5); Glucose 201 mg/dL (70-105); HDL Cholesterol Less than 8 mg/dL (>60 Neg Risk); Magnesium 2.5 mg/dL (1.6-2.6); Phosphorus 2.1 mg/dL (2.3-4.7); Protein, Total 4.1 g/dL (6.0-8.3); Sodium 142 mmol/L (136-145); Triglycerides 191 mg/dL (Less than 150)
[2021-08-22 06:58] LABS: Anion Gap 10 mmol/L (10-20); BUN (Urea Nitrogen) 48 mg/dL (8.9-20.6); Calc. Creatinine Clearance 111 mL/min (70-130); Carbon Dioxide 31 mmol/L (22-29); Chloride 104 mmol/L (98-107); Glucose 198 mg/dL (70-105); Magnesium 2.3 mg/dL (1.6-2.6); Phosphorus 2.2 mg/dL (2.3-4.7); Sodium 141 mmol/L (136-145)
[2021-08-22 07:01] LABS: Band 20 % (5-11); Large Platelets SLIGHT; Lymphocytes 11 % (21-51); MDiff Complete? YES; Metamyelocyte 1 % (0-0); Monocytes 5 % (0-10); Myelocyte 1 % (0-0); Neutrophil 62 % (42-75); Platelet Morphology Comment Appears Decreased; Polychromasia SLIGHT = 2-3 cells (100X) (0-2/hpf)
[2021-08-22] MEDS ORDERED: Potassium Phosphate 30 MMOL in Sodium Chloride 0.9% 500 ML IVPB SCH (08:00)
[2021-08-22] MEDS ORDERED: Potassium Phosphate 30 MMOL in Sodium Chloride 0.9% 250 ML 250 ML IVPB SCH (08:00)
[2021-08-22] MEDS: Pantoprazole 40 MG VIAL IVP SCH (08:36)
[2021-08-22] MEDS: Micafungin 100 MG in Sodium Chloride 0.9% 100 ML IVPB SCH (08:36)
[2021-08-22] MEDS: Sodium Chloride 0.45% 1,000 ML IV SCH (10:30)
[2021-08-22] MEDS: Furosemide 20 MG/2 ML VIAL SLOW IVP SCH (10:30)
[2021-08-22] MEDS ORDERED: Fentanyl 250 MCG/5 ML VIAL ONE (11:29)
[2021-08-22] MEDS ORDERED: Midazolam HCl 2 mg/2 ml Vial ONE (11:29)
[2021-08-22] MEDS ORDERED: Rocuronium Bromide 10 MG/ML (10ML VIAL) ONE (12:35)
[2021-08-22] MEDS ORDERED: Rocuronium Bromide 50 MG/5 ML VIAL ONE (13:07)
[2021-08-22] MEDS: Enoxaparin Sodium 30 MG/0.3 ML SYRINGE SC SCH (14:19)
[2021-08-22] MEDS ORDERED: Calcium Chloride 1 GM/10 ML Abboject SYRINGE IVP SCH (17:15)
[2021-08-22] MEDS: Dexmedetomidine 1,000 MCG in Sodium Chloride 0.9% 250 ML 240 ML IVPB SCH (17:37)
[2021-08-22] MEDS ORDERED: Calcium Chloride 1 GM/10 ML Abboject SYRINGE ONE (17:45)
[2021-08-22] MEDS ORDERED: Enoxaparin Sodium 30 MG/0.3 ML SYRINGE SC SCH (21:00)
[2021-08-22] MEDS: Multivitamins, Adult 10 ML, TRACE ELEMENT CONCENTRATE 1 ML in D15W-AA 5% with Lytes 2,0... IV SCH (22:03)
[2021-08-22] MEDS ORDERED: Furosemide 20 MG/2 ML VIAL SLOW IVP SCH (22:30)
[2021-08-23] MEDS: Hydrocortisone Sod Succ/PF 100 mg/2 ml Vial IVP SCH ×4 (00:09→17:24)
[2021-08-23] MEDS ORDERED: Fentanyl CADD 100 ML ONE ×3 (02:16→21:05)
[2021-08-23 04:44] LABS: Prothrombin Time 13.3 sec (12.0-14.7)
[2021-08-23 04:46] LABS: Band 14 % (5-11); Hemoglobin 10.8 g/dL (14.0-18.0); Hypochromia SLIGHT = 6-15 cells (100X) (0-5/hpf); Lymphocytes 16 % (21-51); MDiff Complete? YES; Mean Corpuscular HGB CONC 31.7 g/dL (32.0-36.0); Mean Corpuscular Volume 97.8 fL (78.0-98.0); Mean Platelet Volume 9.1 fL (7.4-10.4); Monocytes 2 % (0-10); Neutrophil 68 % (42-75); Nucleated RBC 1 % (0); Platelet Count 130 thou/uL (130-400); Platelet Morphology Comment Appears Adequate; RBC Distribution Width 13.5 % (11.5-14.5); Red Blood Cell (RBC) Count 3.47 mill/uL (4.70-6.10); White Blood Cell (WBC) Count 9.9 thou/uL (4.8-10.8)
[2021-08-23 04:55] LABS: ALT (SGPT) 64 U/L (8-55); AST (SGOT) 121 U/L (5-34); Albumin 2.1 g/dL (3.5-5.0); Alkaline Phosphatase 50 U/L (40-110); Anion Gap 11 mmol/L (10-20); BUN (Urea Nitrogen) 49 mg/dL (8.9-20.6); Bilirubin, Total 4.5 mg/dL (0.2-1.2); Calc. Creatinine Clearance 117 mL/min (70-130); Calcium 8.3 mg/dL (7.8-10.44); Carbon Dioxide 31 mmol/L (22-29); Chloride 105 mmol/L (98-107); Cholesterol 68 mg/dl (< 200 Desired); Globulin 1.8 g/dL (2.4-3.5); Glucose 181 mg/dL (70-105); HDL Cholesterol Less than 8 mg/dL (>60 Neg Risk); Potassium 3.7 mmol/L (3.5-5.1); Protein, Total 3.9 g/dL (6.0-8.3); Sodium 143 mmol/L (136-145); Triglycerides 183 mg/dL (Less than 150)
[2021-08-23] MEDS: Sodium Chloride 0.45% 1,000 ML IV SCH (05:49)
[2021-08-23] MEDS: Piperacillin/Tazobactam 3.375 GM in Sodium Chloride 0.9% 100 ML IVPB SCH ×3 (05:49→21:09)
[2021-08-23] MEDS: Enoxaparin Sodium 30 MG/0.3 ML SYRINGE SC SCH ×2 (07:35→21:09)
[2021-08-23] MEDS: Pantoprazole 40 MG VIAL IVP SCH (07:36)
[2021-08-23] MEDS ORDERED: Furosemide 20 MG/2 ML VIAL ONE (08:02)
[2021-08-23 08:06] LABS: Direct LDL Cholesterol 6 mg/dL (0-99)
[2021-08-23] MEDS: Furosemide 20 MG/2 ML VIAL SLOW IVP SCH ×3 (08:07→15:05)
[2021-08-23 08:22] LABS: Magnesium 2.1 mg/dL (1.6-2.6); Phosphorus 2.6 mg/dL (2.3-4.7)
[2021-08-23 08:54] LABS: Actual Bicarbonate (HCO3a) 28.6 mEq/L (22-28); Base Excess (BEa) 5.4 mEq/L (-2.0 to +3.0); Calcium, Ionized (arterial) 1.13 mmol/L (1.12-1.30); Carboxyhemoglobin (COHb) 0.7 gm% (0.0-3.0); Hemoglobin (Hb) 8.7 g/dL (14.0-18.0); O2 Tension (PaO2), arterial 67.2 mmHg (80.0-100.0); Potassium - ABG Lab 3.37 mmol/L (3.70-5.30); pH, Arterial 7.52 (7.35-7.45)
[2021-08-23 08:55] LABS: Puncture Site RRA
[2021-08-23] MEDS ORDERED: Potassium Phosphate 30 MMOL in Sodium Chloride 0.9% 250 ML 250 ML IVPB SCH (10:00)
[2021-08-23] MEDS: Fentanyl CADD 100 ML IV SCH ×2 (11:30→21:09)
[2021-08-23 13:50] LABS: Actual Bicarbonate (HCO3a) 25.5 mEq/L (22-28); Analyzer IN Cardio OR; Base Excess (BEa) -1.3 mEq/L (-2.0 to +3.0); Calcium, Ionized (arterial) 1.16 mmol/L (1.12-1.30); Hemoglobin (Hb) 9.7 g/dL (14.0-18.0); O2 Tension (PaO2), arterial 74.8 mmHg (80.0-100.0); Potassium - ABG Lab 4.64 mmol/L (3.70-5.30); Puncture Site Arterial Line
[2021-08-23 13:51] LABS: Actual Bicarbonate (HCO3a) 11.4 mEq/L (22-28); Analyzer IN Cardio OR; Base Excess (BEa) -17.1 mEq/L (-2.0 to +3.0); CO2 Tension 37.1 mmHg (35.0-45.0); Calcium, Ionized (arterial) 0.92 mmol/L (1.12-1.30); Carboxyhemoglobin (COHb) 1.1 gm% (0.0-3.0); Hemoglobin (Hb) 10.8 g/dL (14.0-18.0); O2 Tension (PaO2), arterial 244.8 mmHg (80.0-100.0); Potassium - ABG Lab 4.43 mmol/L (3.70-5.30)
[2021-08-23 13:52] LABS: Puncture Site Arterial Line; pH, Arterial 7.11 (7.35-7.45)
[2021-08-23] MEDS: Acetaminophen 650 MG Suppository PR PRN (15:05)
[2021-08-23] MEDS: Dexmedetomidine 1,000 MCG in Sodium Chloride 0.9% 250 ML 240 ML IVPB SCH (15:39)
[2021-08-23] MEDS ORDERED: POTASSIUM CHLORIDE IV SCH (22:00)
[2021-08-23] MEDS ORDERED: [UNRECOGNIZED DRUG - OTHER] IV SCH (22:00)
[2021-08-23] MEDS ORDERED: SODIUM CHLORIDE IV SCH (22:00)
[2021-08-23] MEDS ORDERED: SODIUM PHOSPHATE IV SCH (22:00)
[2021-08-24] MEDS: Hydrocortisone Sod Succ/PF 100 mg/2 ml Vial IVP SCH ×4 (00:14→17:26)
[2021-08-24] MEDS: Furosemide 20 MG/2 ML VIAL SLOW IVP SCH ×3 (00:18→17:26)
[2021-08-24] MEDS: Dexmedetomidine 1,000 MCG in Sodium Chloride 0.9% 250 ML 240 ML IVPB SCH ×2 (02:24→13:44)
[2021-08-24] MEDS: Piperacillin/Tazobactam 3.375 GM in Sodium Chloride 0.9% 100 ML IVPB SCH ×3 (05:19→21:17)
[2021-08-24 05:24] LABS: ALT (SGPT) 59 U/L (8-55); AST (SGOT) 102 U/L (5-34); Alkaline Phosphatase 57 U/L (40-110); Anion Gap 14 mmol/L (10-20); BUN (Urea Nitrogen) 49 mg/dL (8.9-20.6); Calc. Creatinine Clearance 127 mL/min (70-130); Calcium 7.4 mg/dL (7.8-10.44); Carbon Dioxide 30 mmol/L (22-29); Chloride 105 mmol/L (98-107); Cholesterol 74 mg/dl (< 200 Desired); Globulin 2.3 g/dL (2.4-3.5); Glucose 200 mg/dL (70-105); HDL Cholesterol Less than 8 mg/dL (>60 Neg Risk); Magnesium 2.1 mg/dL (1.6-2.6); Potassium 3.6 mmol/L (3.5-5.1); Protein, Total 4.3 g/dL (6.0-8.3); Sodium 145 mmol/L (136-145); Triglycerides 244 mg/dL (Less than 150)
[2021-08-24 06:02] LABS: Band 31 % (5-11); Hemoglobin 9.1 g/dL (14.0-18.0); Lymphocytes 6 % (21-51); MDiff Complete? YES; Mean Corpuscular HGB CONC 32.8 g/dL (32.0-36.0); Mean Corpuscular Hemoglobin 32.1 pg (27.0-31.0); Mean Corpuscular Volume 97.8 fL (78.0-98.0); Mean Platelet Volume 8.8 fL (7.4-10.4); Metamyelocyte 2 % (0-0); Monocytes 4 % (0-10); Myelocyte 1 % (0-0); Neutrophil 56 % (42-75); Platelet Count 244 thou/uL (130-400); Platelet Morphology Comment Appears Adequate; RBC Distribution Width 13.5 % (11.5-14.5); Red Blood Cell (RBC) Count 2.84 mill/uL (4.70-6.10); White Blood Cell (WBC) Count 12.4 thou/uL (4.8-10.8)
[2021-08-24] MEDS ORDERED: Fentanyl CADD 100 ML ONE ×2 (06:52→17:24)
[2021-08-24] MEDS: Fentanyl CADD 100 ML IV SCH ×2 (07:09→17:26)
[2021-08-24 07:13] LABS: Actual Bicarbonate (HCO3a) 29.6 mEq/L (22-28); Base Excess (BEa) 6.5 mEq/L (-2.0 to +3.0); CO2 Tension 35.8 mmHg (35.0-45.0); Calcium, Ionized (arterial) 1.09 mmol/L (1.12-1.30); Carboxyhemoglobin (COHb) 1.4 gm% (0.0-3.0); Hemoglobin (Hb) 7.7 g/dL (14.0-18.0); O2 Tension (PaO2), arterial 66.1 mmHg (80.0-100.0); Potassium - ABG Lab 3.19 mmol/L (3.70-5.30); pH, Arterial 7.54 (7.35-7.45)
[2021-08-24] MEDS ORDERED: Potassium Phosphate 15 MMOL in Sodium Chloride 0.9% 250 ML 250 ML IVPB SCH (07:15)
[2021-08-24 07:29] LABS: Puncture Site RRA
[2021-08-24] MEDS: Pantoprazole 40 MG VIAL IVP SCH (08:03)
[2021-08-24] MEDS: Enoxaparin Sodium 30 MG/0.3 ML SYRINGE SC SCH ×2 (08:03→21:17)
[2021-08-24] MEDS: Sodium Chloride 0.45% 1,000 ML IV SCH (08:03)
[2021-08-24 08:14] LABS: Direct LDL Cholesterol 5 mg/dL (0-99)
[2021-08-24] MEDS ORDERED: Fentanyl 100 MCG/2 ML VIAL ONE ×2 (08:43→08:44)
[2021-08-24] MEDS ORDERED: Famotidine/PF 20 mg/2ml Vial ONE (08:44)
[2021-08-24] MEDS ORDERED: SUGAMMADEX SODIUM 200 MG/2 ML VIAL ONE (08:44)
[2021-08-24] MEDS ORDERED: HYDROmorphone 2 MG/ML VIAL SLOW IVP SCH (09:15)
[2021-08-24] MEDS ORDERED: Midazolam HCl 2 mg/2 ml Vial ONE (09:31)
[2021-08-24] MEDS ORDERED: Rocuronium Bromide 10 MG/ML (10ML VIAL) ONE (09:33)
[2021-08-24] MEDS ORDERED: Ondansetron PF 4 MG/2 ML Vial ONE (09:33)
[2021-08-24] MEDS: Acetaminophen 650 MG Suppository PR PRN (21:17)
[2021-08-24] MEDS ORDERED: POTASSIUM CHLORIDE IV SCH (22:00)
[2021-08-24] MEDS ORDERED: SODIUM PHOSPHATE IV SCH (22:00)
[2021-08-24] MEDS ORDERED: SODIUM CHLORIDE IV SCH (22:00)
[2021-08-24] MEDS ORDERED: [UNRECOGNIZED DRUG - OTHER] IV SCH (22:00)
[2021-08-25] MEDS: Furosemide 20 MG/2 ML VIAL SLOW IVP SCH (02:12)
[2021-08-25] MEDS: Hydrocortisone Sod Succ/PF 100 mg/2 ml Vial IVP SCH ×4 (02:12→18:22)
[2021-08-25] MEDS ORDERED: Fentanyl CADD 100 ML ONE ×3 (03:29→21:07)
[2021-08-25] MEDS: Fentanyl CADD 100 ML IV SCH ×3 (03:36→21:10)
[2021-08-25 04:37] LABS: Direct LDL Cholesterol 5 mg/dL (0-99)
[2021-08-25 05:07] LABS: Hemoglobin 8.2 g/dL (14.0-18.0); Mean Corpuscular HGB CONC 32.3 g/dL (32.0-36.0); Mean Corpuscular Hemoglobin 32.2 pg (27.0-31.0); Mean Corpuscular Volume 99.7 fL (78.0-98.0); Mean Platelet Volume 8.6 fL (7.4-10.4); Platelet Count 425 thou/uL (130-400); RBC Distribution Width 13.7 % (11.5-14.5); Red Blood Cell (RBC) Count 2.54 mill/uL (4.70-6.10); White Blood Cell (WBC) Count 14.8 thou/uL (4.8-10.8)
[2021-08-25 05:25] LABS: Phosphorus 3.3 mg/dL (2.3-4.7)
[2021-08-25 05:27] LABS: ALT (SGPT) 77 U/L (8-55); AST (SGOT) 101 U/L (5-34); Alkaline Phosphatase 71 U/L (40-110); Anion Gap 11 mmol/L (10-20); BUN (Urea Nitrogen) 48 mg/dL (8.9-20.6); Bilirubin, Total 4.7 mg/dL (0.2-1.2); Calc. Creatinine Clearance 105 mL/min (70-130); Calcium 7.7 mg/dL (7.8-10.44); Carbon Dioxide 31 mmol/L (22-29); Chloride 106 mmol/L (98-107); Cholesterol 72 mg/dl (< 200 Desired); Globulin 2.5 g/dL (2.4-3.5); Glucose 410 mg/dL (70-105); HDL Cholesterol Less than 8 mg/dL (>60 Neg Risk); Magnesium 2.1 mg/dL (1.6-2.6); Potassium 3.9 mmol/L (3.5-5.1); Protein, Total 4.5 g/dL (6.0-8.3); Sodium 144 mmol/L (136-145); Triglycerides 233 mg/dL (Less than 150)
[2021-08-25 05:30] LABS: Band 25 % (5-11); Lymphocytes 4 % (21-51); MDiff Complete? YES; Macrocytosis SLIGHT = 6-15 cells (100X) (0-5/hpf); Monocytes 10 % (0-10); Neutrophil 60 % (42-75); Platelet Morphology Comment Appears Increased; Polychromasia SLIGHT = 2-3 cells (100X) (0-2/hpf); Reactive Lymphocytes 1 % (0-10)
[2021-08-25] MEDS: Piperacillin/Tazobactam 3.375 GM in Sodium Chloride 0.9% 100 ML IVPB SCH ×3 (05:47→22:10)
[2021-08-25 07:16] LABS: ALT (SGPT) 79 U/L (8-55); AST (SGOT) 105 U/L (5-34); Albumin 2.1 g/dL (3.5-5.0); Alkaline Phosphatase 72 U/L (40-110); Anion Gap 12 mmol/L (10-20); BUN (Urea Nitrogen) 46 mg/dL (8.9-20.6); Bilirubin, Total 4.6 mg/dL (0.2-1.2); Calc. Creatinine Clearance 115 mL/min (70-130); Calcium 7.1 mg/dL (7.8-10.44); Carbon Dioxide 29 mmol/L (22-29); Chloride 109 mmol/L (98-107); Globulin 2.5 g/dL (2.4-3.5); Glucose 193 mg/dL (70-105); HDL Cholesterol Less than 8 mg/dL (>60 Neg Risk); Magnesium 2.1 mg/dL (1.6-2.6); Potassium 3.3 mmol/L (3.5-5.1); Protein, Total 4.6 g/dL (6.0-8.3); Sodium 147 mmol/L (136-145); Triglycerides 233 mg/dL (Less than 150)
[2021-08-25] MEDS: Pantoprazole 40 MG VIAL IVP SCH (08:32)
[2021-08-25] MEDS: Enoxaparin Sodium 30 MG/0.3 ML SYRINGE SC SCH ×2 (08:32→20:09)
[2021-08-25] MEDS: Dexmedetomidine 1,000 MCG in Sodium Chloride 0.9% 250 ML 240 ML IVPB SCH ×2 (08:32→14:40)
[2021-08-25] MEDS ORDERED: Potassium Phosphate 30 MMOL in Sodium Chloride 0.9% 250 ML 250 ML IVPB SCH (08:45)
[2021-08-25 15:17] LABS: SARS-CoV-2 NAA Rapid Test Not Detected (NotDetected)
[2021-08-25] MEDS ORDERED: Rocuronium Bromide 10 MG/ML (10ML VIAL) ONE (15:57)
[2021-08-25] MEDS ORDERED: Vecuronium 10 MG VIAL ONE (15:57)
[2021-08-25] MEDS ORDERED: Fentanyl 100 MCG/2 ML VIAL ONE (16:02)
[2021-08-25] MEDS ORDERED: Midazolam HCl 2 mg/2 ml Vial ONE (17:56)
[2021-08-25] MEDS ORDERED: Midazolam HCl 2 mg/2 ml Vial SLOW IVP SCH (18:15)
[2021-08-25] MEDS: Propofol 1,000 MG/100 ML VIAL IV PRN (20:09)
[2021-08-25] MEDS: POTASSIUM CHLORIDE IV SCH (22:11)
[2021-08-25] MEDS: [UNRECOGNIZED DRUG - OTHER] IV SCH (22:11)
[2021-08-25] MEDS: POTASSIUM PHOSPHATE IV SCH (22:11)
[2021-08-25] MEDS: SODIUM PHOSPHATE IV SCH (22:11)
[2021-08-26] MEDS: Hydrocortisone Sod Succ/PF 100 mg/2 ml Vial IVP SCH ×4 (00:09→17:03)
[2021-08-26] MEDS: Dexmedetomidine 1,000 MCG in Sodium Chloride 0.9% 250 ML 240 ML IVPB SCH ×3 (04:08→19:52)
[2021-08-26 05:02] LABS: Mean Corpuscular HGB CONC 31.8 g/dL (32.0-36.0); Mean Corpuscular Hemoglobin 31.9 pg (27.0-31.0); Mean Platelet Volume 8.7 fL (7.4-10.4); Platelet Count 581 thou/uL (130-400); RBC Distribution Width 13.6 % (11.5-14.5); Red Blood Cell (RBC) Count 2.83 mill/uL (4.70-6.10); White Blood Cell (WBC) Count 19.8 thou/uL (4.8-10.8)
[2021-08-26 05:11] LABS: Phosphorus 3.2 mg/dL (2.3-4.7)
[2021-08-26 05:14] LABS: ALT (SGPT) 88 U/L (8-55); AST (SGOT) 103 U/L (5-34); Albumin 1.9 g/dL (3.5-5.0); Alkaline Phosphatase 71 U/L (40-110); Anion Gap 13 mmol/L (10-20); BUN (Urea Nitrogen) 47 mg/dL (8.9-20.6); Bilirubin, Total 4.3 mg/dL (0.2-1.2); Calc. Creatinine Clearance 115 mL/min (70-130); Calcium 7.2 mg/dL (7.8-10.44); Carbon Dioxide 26 mmol/L (22-29); Chloride 113 mmol/L (98-107); Cholesterol 62 mg/dl (< 200 Desired); Globulin 2.5 g/dL (2.4-3.5); Glucose 212 mg/dL (70-105); HDL Cholesterol Less than 8 mg/dL (>60 Neg Risk); Magnesium 2.5 mg/dL (1.6-2.6); Potassium 4.1 mmol/L (3.5-5.1); Protein, Total 4.4 g/dL (6.0-8.3); Sodium 148 mmol/L (136-145); Triglycerides 217 mg/dL (Less than 150)
[2021-08-26] MEDS: Piperacillin/Tazobactam 3.375 GM in Sodium Chloride 0.9% 100 ML IVPB SCH ×3 (05:44→22:18)
[2021-08-26 05:46] LABS: Band 27 % (5-11); Lymphocytes 2 % (21-51); MDiff Complete? YES; Metamyelocyte 1 % (0-0); Monocytes 4 % (0-10); Neutrophil 65 % (42-75); Platelet Morphology Comment Appears Increased; Reactive Lymphocytes 1 % (0-10)
[2021-08-26] MEDS ORDERED: Fentanyl CADD 100 ML ONE ×2 (05:47→22:38)
[2021-08-26] MEDS: Fentanyl CADD 100 ML IV SCH ×3 (05:50→22:41)
[2021-08-26 07:04] LABS: Actual Bicarbonate (HCO3a) 27.5 mEq/L (22-28); Base Excess (BEa) 3.9 mEq/L (-2.0 to +3.0); CO2 Tension 37.4 mmHg (35.0-45.0); Calcium, Ionized (arterial) 1.04 mmol/L (1.12-1.30); Carboxyhemoglobin (COHb) 0.3 gm% (0.0-3.0); Hemoglobin (Hb) 9.6 g/dL (14.0-18.0); O2 Tension (PaO2), arterial 87.8 mmHg (80.0-100.0); Potassium - ABG Lab 3.55 mmol/L (3.70-5.30); pH, Arterial 7.48 (7.35-7.45)
[2021-08-26] MEDS ORDERED: Potassium Phosphate 15 MMOL in Sodium Chloride 0.9% 250 ML 250 ML IVPB SCH (07:15)
[2021-08-26 07:22] LABS: Puncture Site RRA
[2021-08-26] MEDS: Pantoprazole 40 MG VIAL IVP SCH (08:11)
[2021-08-26] MEDS: Enoxaparin Sodium 30 MG/0.3 ML SYRINGE SC SCH ×2 (08:11→20:33)
[2021-08-26] MEDS ORDERED: Calcium Chloride 13.6 MEQ in Sodium Chloride 0.9% 100 ML IVPB SCH (08:15)
[2021-08-26 08:16] LABS: Direct LDL Cholesterol 5 mg/dL (0-99)
[2021-08-26] MEDS: Micafungin 100 MG in Sodium Chloride 0.9% 100 ML IVPB SCH (10:43)
[2021-08-26] MEDS: Insulin Regular 300 UNITS/3 ML VIAL SC PRN ×2 (16:22→20:33)
[2021-08-26] MEDS: POTASSIUM PHOSPHATE IV SCH (22:18)
[2021-08-26] MEDS: SODIUM PHOSPHATE IV SCH (22:18)
[2021-08-26] MEDS: [UNRECOGNIZED DRUG - OTHER] IV SCH (22:18)
[2021-08-26] MEDS: POTASSIUM CHLORIDE IV SCH (22:18)
[2021-08-27] MEDS: Insulin Regular 300 UNITS/3 ML VIAL SC PRN ×6 (00:19→23:29)
[2021-08-27] MEDS: Hydrocortisone Sod Succ/PF 100 mg/2 ml Vial IVP SCH ×2 (00:19→06:41)
[2021-08-27] MEDS: Dexmedetomidine 1,000 MCG in Sodium Chloride 0.9% 250 ML 240 ML IVPB SCH ×3 (04:12→20:51)
[2021-08-27 05:39] LABS: ALT (SGPT) 126 U/L (8-55); AST (SGOT) 158 U/L (5-34); Albumin 2.2 g/dL (3.5-5.0); Alkaline Phosphatase 62 U/L (40-110); Anion Gap 12 mmol/L (10-20); BUN (Urea Nitrogen) 47 mg/dL (8.9-20.6); Bilirubin, Total 3.8 mg/dL (0.2-1.2); Calc. Creatinine Clearance 122 mL/min (70-130); Calcium 7.8 mg/dL (7.8-10.44); Carbon Dioxide 27 mmol/L (22-29); Chloride 120 mmol/L (98-107); Cholesterol 69 mg/dl (< 200 Desired); Globulin 2.2 g/dL (2.4-3.5); Glucose 218 mg/dL (70-105); HDL Cholesterol Less than 8 mg/dL (>60 Neg Risk); Magnesium 2.8 mg/dL (1.6-2.6); Potassium 3.7 mmol/L (3.5-5.1); Protein, Total 4.4 g/dL (6.0-8.3); Sodium 155 mmol/L (136-145); Triglycerides 236 mg/dL (Less than 150)
[2021-08-27 05:46] LABS: Hemoglobin 6.4 g/dL (14.0-18.0); Mean Corpuscular HGB CONC 31.3 g/dL (32.0-36.0); Mean Corpuscular Hemoglobin 31.5 pg (27.0-31.0); Mean Platelet Volume 8.8 fL (7.4-10.4); Platelet Count 551 thou/uL (130-400); RBC Distribution Width 13.5 % (11.5-14.5); Red Blood Cell (RBC) Count 2.03 mill/uL (4.70-6.10); White Blood Cell (WBC) Count 12.6 thou/uL (4.8-10.8)
[2021-08-27 05:50] LABS: Phosphorus 2.7 mg/dL (2.3-4.7)
[2021-08-27 06:37] LABS: INR-International Normal Ratio 1.1; PTT 28.8 sec (22.9-36.1)
[2021-08-27] MEDS: Piperacillin/Tazobactam 3.375 GM in Sodium Chloride 0.9% 100 ML IVPB SCH (06:42)
[2021-08-27] MEDS: Enoxaparin Sodium 30 MG/0.3 ML SYRINGE SC SCH ×2 (07:09→20:14)
[2021-08-27] MEDS ORDERED: Potassium Phosphate 15 MMOL in Sodium Chloride 0.9% 250 ML 250 ML IVPB SCH (07:30)
[2021-08-27 07:36] LABS: #Lymphocytes 1.1 thou/uL (1.20-3.40); #Monocytes 0.6 thou/uL (0.11-0.59); #Neutrophils 10.9 thou/uL (1.40-6.50); %Basophils 0.1 % (0.0-1.0); %Eosinophils 0.3 % (0.0-10.0); %Lymphocytes 8.6 % (21.0-51.0); %Monocytes 4.7 % (0.0-10.0); %Neutrophils 86.4 % (42.0-75.0)
[2021-08-27] MEDS ORDERED: Midazolam HCl 2 mg/2 ml Vial ONE ×2 (07:44→08:52)
[2021-08-27] MEDS ORDERED: Fentanyl 250 MCG/5 ML VIAL ONE ×2 (07:44→08:52)
[2021-08-27] MEDS: Fentanyl CADD 100 ML IV SCH (07:45)
[2021-08-27 08:13] LABS: Direct LDL Cholesterol 4 mg/dL (0-99)
[2021-08-27] MEDS ORDERED: Rocuronium Bromide 10 MG/ML (10ML VIAL) ONE (08:25)
[2021-08-27] MEDS ORDERED: PROPOFOL 200 MG/20 ML VIAL ONE (08:25)
[2021-08-27] MEDS ORDERED: PHENYLEPHRINE-NS 100 MCG/ML 10 ML SYRINGE ONE (08:25)
[2021-08-27] MEDS ORDERED: Ondansetron PF 4 MG/2 ML Vial ONE (08:25)
[2021-08-27] MEDS ORDERED: Albumin 25% 100 ML ONE (08:52)
[2021-08-27] MEDS: Micafungin 100 MG in Sodium Chloride 0.9% 100 ML IVPB SCH (10:24)
[2021-08-27] MEDS: Pantoprazole 40 MG VIAL IVP SCH (10:25)
[2021-08-27] MEDS ORDERED: Midazolam HCl 2 mg/2 ml Vial SLOW IVP PRN (11:34)
[2021-08-27] MEDS: Piperacillin/Tazobactam 3.375 GM in Dextrose 5% in Water 100 ML IVPB SCH ×2 (14:44→23:26)
[2021-08-27] MEDS: Midazolam HCl 2 mg/2 ml Vial SLOW IVP PRN (20:14)
[2021-08-27] MEDS: [UNRECOGNIZED DRUG - OTHER] IV SCH (22:12)
[2021-08-27] MEDS: POTASSIUM CHLORIDE IV SCH (22:12)
[2021-08-27] MEDS: POTASSIUM PHOSPHATE IV SCH (22:12)
[2021-08-27] MEDS: CALCIUM GLUCONATE IV SCH (22:12)
[2021-08-28] MEDS: Midazolam HCl 2 mg/2 ml Vial SLOW IVP PRN ×4 (01:35→13:00)
[2021-08-28 02:36] LABS: Direct LDL Cholesterol Less than 4 mg/dL (0-99)
[2021-08-28] MEDS: Dexmedetomidine 1,000 MCG in Sodium Chloride 0.9% 250 ML 240 ML IVPB SCH ×3 (02:57→18:37)
[2021-08-28] MEDS: Insulin Regular 300 UNITS/3 ML VIAL SC PRN ×5 (03:36→20:33)
[2021-08-28 04:26] LABS: #Monocytes 0.6 thou/uL (0.11-0.59); #Neutrophils 9.1 thou/uL (1.40-6.50); %Basophils 0.1 % (0.0-1.0); %Eosinophils 0.1 % (0.0-10.0); %Monocytes 5.6 % (0.0-10.0); %Neutrophils 85.2 % (42.0-75.0); Hemoglobin 8.6 g/dL (14.0-18.0); Mean Corpuscular HGB CONC 32.2 g/dL (32.0-36.0); Mean Corpuscular Hemoglobin 31.5 pg (27.0-31.0); Mean Corpuscular Volume 97.8 fL (78.0-98.0); Mean Platelet Volume 8.7 fL (7.4-10.4); Platelet Count 584 thou/uL (130-400); RBC Distribution Width 14.1 % (11.5-14.5); Red Blood Cell (RBC) Count 2.74 mill/uL (4.70-6.10); White Blood Cell (WBC) Count 10.7 thou/uL (4.8-10.8)
[2021-08-28 04:42] LABS: Phosphorus 2.1 mg/dL (2.3-4.7)
[2021-08-28 05:58] LABS: ALT (SGPT) 161 U/L (8-55); AST (SGOT) 140 U/L (5-34); Albumin 2.4 g/dL (3.5-5.0); Alkaline Phosphatase 73 U/L (40-110); Anion Gap 12 mmol/L (10-20); BUN (Urea Nitrogen) 43 mg/dL (8.9-20.6); Calc. Creatinine Clearance 169 mL/min (70-130); Calcium 8.1 mg/dL (7.8-10.44); Carbon Dioxide 24 mmol/L (22-29); Chloride 124 mmol/L (98-107); Cholesterol 80 mg/dl (< 200 Desired); Globulin 2.3 g/dL (2.4-3.5); Glucose 211 mg/dL (70-105); HDL Cholesterol Less than 8 mg/dL (>60 Neg Risk); Magnesium 2.6 mg/dL (1.6-2.6); Potassium 4.1 mmol/L (3.5-5.1); Protein, Total 4.7 g/dL (6.0-8.3); Sodium 156 mmol/L (136-145); Triglycerides 247 mg/dL (Less than 150)
[2021-08-28] MEDS: Piperacillin/Tazobactam 3.375 GM in Dextrose 5% in Water 100 ML IVPB SCH ×3 (06:02→22:18)
[2021-08-28] MEDS: Dextrose 5% in Water 500 ML IV SCH ×2 (07:48→17:52)
[2021-08-28] MEDS ORDERED: Potassium Phosphate 30 MMOL in Sodium Chloride 0.9% 250 ML 250 ML IVPB SCH (08:00)
[2021-08-28] MEDS: Micafungin 100 MG in Sodium Chloride 0.9% 100 ML IVPB SCH (09:37)
[2021-08-28] MEDS: Enoxaparin Sodium 30 MG/0.3 ML SYRINGE SC SCH ×2 (09:37→20:32)
[2021-08-28] MEDS: Pantoprazole 40 MG VIAL IVP SCH (09:55)
[2021-08-28] MEDS ORDERED: Fentanyl CADD 100 ML ONE (13:26)
[2021-08-28] MEDS: Fentanyl CADD 100 ML IV SCH (13:29)
[2021-08-28] MEDS: CALCIUM GLUCONATE IV SCH (22:12)
[2021-08-28] MEDS: [UNRECOGNIZED DRUG - OTHER] IV SCH (22:12)
[2021-08-28] MEDS: POTASSIUM CHLORIDE IV SCH (22:12)
[2021-08-28] MEDS: POTASSIUM PHOSPHATE IV SCH (22:12)
[2021-08-29] MEDS: Dextrose 5% in Water 1,000 ML IV PRN ×2 (01:25→22:38)
[2021-08-29] MEDS: Dexmedetomidine 1,000 MCG in Sodium Chloride 0.9% 250 ML 240 ML IVPB SCH ×3 (01:25→18:41)
[2021-08-29] MEDS: Insulin Regular 300 UNITS/3 ML VIAL SC PRN ×3 (01:26→12:49)
[2021-08-29] MEDS ORDERED: Fentanyl CADD 100 ML ONE ×2 (02:18→16:57)
[2021-08-29] MEDS: Dextrose 5% in Water 500 ML IV SCH ×3 (02:54→23:40)
[2021-08-29] MEDS: Fentanyl CADD 100 ML IV SCH ×2 (02:54→17:15)
[2021-08-29 03:47] LABS: #Eosinphils 0.1 thou/uL (0.0-0.7); #Lymphocytes 1.6 thou/uL (1.20-3.40); #Monocytes 0.7 thou/uL (0.11-0.59); #Neutrophils 15.8 thou/uL (1.40-6.50); %Eosinophils 0.4 % (0.0-10.0); %Lymphocytes 8.5 % (21.0-51.0); %Monocytes 3.9 % (0.0-10.0); %Neutrophils 87.1 % (42.0-75.0); Hemoglobin 9.4 g/dL (14.0-18.0); Mean Corpuscular HGB CONC 32.7 g/dL (32.0-36.0); Mean Corpuscular Hemoglobin 32.2 pg (27.0-31.0); Mean Corpuscular Volume 98.6 fL (78.0-98.0); Mean Platelet Volume 8.4 fL (7.4-10.4); Platelet Count 673 thou/uL (130-400); RBC Distribution Width 13.9 % (11.5-14.5); Red Blood Cell (RBC) Count 2.91 mill/uL (4.70-6.10); White Blood Cell (WBC) Count 18.2 thou/uL (4.8-10.8)
[2021-08-29 03:58] LABS: INR-International Normal Ratio 1.2; PTT 30.7 sec (22.9-36.1)
[2021-08-29 04:11] LABS: ALT (SGPT) 149 U/L (8-55); AST (SGOT) 92 U/L (5-34); Albumin 2.3 g/dL (3.5-5.0); Alkaline Phosphatase 83 U/L (40-110); Anion Gap 11 mmol/L (10-20); BUN (Urea Nitrogen) 33 mg/dL (8.9-20.6); Bilirubin, Total 4.7 mg/dL (0.2-1.2); Calc. Creatinine Clearance 117 mL/min (70-130); Calcium 7.9 mg/dL (7.8-10.44); Carbon Dioxide 24 mmol/L (22-29); Chloride 120 mmol/L (98-107); Cholesterol 72 mg/dl (< 200 Desired); Globulin 2.2 g/dL (2.4-3.5); Glucose 170 mg/dL (70-105); HDL Cholesterol Less than 8 mg/dL (>60 Neg Risk); Magnesium 2.4 mg/dL (1.6-2.6); Potassium 4.4 mmol/L (3.5-5.1); Protein, Total 4.5 g/dL (6.0-8.3); Sodium 151 mmol/L (136-145); Triglycerides 166 mg/dL (Less than 150)
[2021-08-29 05:29] LABS: Phosphorus 2.3 mg/dL (2.3-4.7)
[2021-08-29] MEDS: Piperacillin/Tazobactam 3.375 GM in Dextrose 5% in Water 100 ML IVPB SCH ×3 (06:02→22:38)
[2021-08-29 06:12] LABS: Direct LDL Cholesterol 9 mg/dL (0-99)
[2021-08-29] MEDS ORDERED: Midazolam HCl 5 mg/5 ml Vial ONE (07:05)
[2021-08-29] MEDS ORDERED: Fentanyl 100 MCG/2 ML VIAL ONE (07:05)
[2021-08-29] MEDS ORDERED: Vecuronium 10 MG VIAL ONE (07:29)
[2021-08-29] MEDS ORDERED: Rocuronium Bromide 10 MG/ML (10ML VIAL) ONE (07:29)
[2021-08-29] MEDS ORDERED: PROPOFOL 200 MG/20 ML VIAL ONE (07:29)
[2021-08-29] MEDS ORDERED: PHENYLEPHRINE-NS 100 MCG/ML 10 ML SYRINGE ONE ×3 (07:29→09:03)
[2021-08-29] MEDS: Enoxaparin Sodium 30 MG/0.3 ML SYRINGE SC SCH ×2 (10:41→20:58)
[2021-08-29] MEDS: Pantoprazole 40 MG VIAL IVP SCH (10:41)
[2021-08-29] MEDS: Micafungin 100 MG in Sodium Chloride 0.9% 100 ML IVPB SCH (10:42)
[2021-08-29] MEDS: Midazolam HCl 2 mg/2 ml Vial SLOW IVP PRN ×2 (13:58→15:07)
[2021-08-29] MEDS ORDERED: Midazolam HCl 2 mg/2 ml Vial SLOW IVP SCH (15:30)
[2021-08-29 15:37] LABS: Hemoglobin 14.2 g/dL (14.0-18.0); Mean Corpuscular Hemoglobin 31.4 pg (27.0-31.0); Mean Corpuscular Volume 97.9 fL (78.0-98.0); Mean Platelet Volume 8.4 fL (7.4-10.4); Platelet Count 737 thou/uL (130-400); RBC Distribution Width 13.8 % (11.5-14.5); Red Blood Cell (RBC) Count 4.52 mill/uL (4.70-6.10)
[2021-08-29 15:38] LABS: Actual Bicarbonate (HCO3a) 18.6 mEq/L (22-28); Base Excess (BEa) -3.3 mEq/L (-2.0 to +3.0); CO2 Tension 26.1 mmHg (35.0-45.0); Calcium, Ionized (arterial) 1.05 mmol/L (1.12-1.30); Carboxyhemoglobin (COHb) 1.3 gm% (0.0-3.0); Hemoglobin (Hb) 14.4 g/dL (14.0-18.0); O2 Tension (PaO2), arterial 66.1 mmHg (80.0-100.0); Potassium - ABG Lab 4.44 mmol/L (3.70-5.30); Puncture Site LRA; pH, Arterial 7.47 (7.35-7.45)
[2021-08-29 15:39] LABS: ALV-art Gradient 186.475 mmHg (0-20)
[2021-08-29 15:45] LABS: INR-International Normal Ratio 1.1; PTT 28.4 sec (22.9-36.1); Prothrombin Time 14.7 sec (12.0-14.7)
[2021-08-29] MEDS ORDERED: Calcium Chloride 13.6 MEQ in Sodium Chloride 0.9% 100 ML IVPB SCH (15:45)
[2021-08-29] MEDS ORDERED: Lactated Ringer's 1,000 ML IV SCH (15:45)
[2021-08-29 15:53] LABS: Lactic Acid 2.3 mmol/L (0.5-2.2)
[2021-08-29 15:57] LABS: Band 26 % (5-11); Lymphocytes 7 % (21-51); MDiff Complete? YES; Monocytes 4 % (0-10); Neutrophil 63 % (42-75); Nucleated RBC 2 % (0); Platelet Morphology Comment Appears Increased; Polychromasia MODERATE = 3-4 cells (100X) (0-2/hpf); White Blood Cell (WBC) Count 20.7 thou/uL (4.8-10.8)
[2021-08-29 16:22] LABS: ALT (SGPT) 128 U/L (8-55); AST (SGOT) 98 U/L (5-34); Albumin 1.9 g/dL (3.5-5.0); Alkaline Phosphatase 84 U/L (40-110); Anion Gap 14 mmol/L (10-20); BUN (Urea Nitrogen) 37 mg/dL (8.9-20.6); Calc. Creatinine Clearance 97 mL/min (70-130); Calcium 7.5 mg/dL (7.8-10.44); Carbon Dioxide 19 mmol/L (22-29); Chloride 120 mmol/L (98-107); Globulin 2.2 g/dL (2.4-3.5); Glucose 122 mg/dL (70-105); Phosphorus 3.4 mg/dL (2.3-4.7); Potassium 5.2 mmol/L (3.5-5.1); Protein, Total 4.1 g/dL (6.0-8.3); Sodium 148 mmol/L (136-145)
[2021-08-29] MEDS ORDERED: Sodium Chloride 0.9% 1,000 ML IV SCH (17:00)
[2021-08-29] MEDS ORDERED: Norepinephrine 16 MG in Dextrose 5% in Water 234 ML IVPB SCH (18:30)
[2021-08-29] MEDS ORDERED: Norepinephrine 8 MG/0.9% NS 250 ML ONE (18:40)
[2021-08-29] MEDS: Norepinephrine 16 MG in Dextrose 5% in Water 234 ML IVPB SCH (18:57)
[2021-08-29] MEDS: Acetaminophen 650 MG Suppository PR PRN (21:01)
[2021-08-29] MEDS ORDERED: [UNRECOGNIZED DRUG - OTHER] IV SCH (22:00)
[2021-08-29] MEDS ORDERED: POTASSIUM CHLORIDE IV SCH (22:00)
[2021-08-29] MEDS ORDERED: POTASSIUM PHOSPHATE IV SCH (22:00)
[2021-08-29] MEDS ORDERED: SODIUM PHOSPHATE IV SCH (22:00)
[2021-08-29] MEDS: POTASSIUM CHLORIDE IV SCH (22:38)
[2021-08-29] MEDS: POTASSIUM PHOSPHATE IV SCH (22:38)
[2021-08-29] MEDS: SODIUM PHOSPHATE IV SCH (22:38)
[2021-08-29] MEDS: [UNRECOGNIZED DRUG - OTHER] IV SCH (22:38)
[2021-08-30] MEDS: Insulin Regular 300 UNITS/3 ML VIAL SC PRN ×6 (00:35→21:54)
[2021-08-30] MEDS: Dexmedetomidine 1,000 MCG in Sodium Chloride 0.9% 250 ML 240 ML IVPB SCH ×2 (01:48→14:40)
[2021-08-30] MEDS ORDERED: Fentanyl CADD 100 ML ONE ×2 (02:40→15:55)
[2021-08-30] MEDS: Fentanyl CADD 100 ML IV SCH ×2 (03:07→15:59)
[2021-08-30 04:29] LABS: Hemoglobin 11.4 g/dL (14.0-18.0); Mean Corpuscular HGB CONC 32.1 g/dL (32.0-36.0); Mean Corpuscular Hemoglobin 31.6 pg (27.0-31.0); Mean Corpuscular Volume 98.2 fL (78.0-98.0); Mean Platelet Volume 8.2 fL (7.4-10.4); Platelet Count 587 thou/uL (130-400); RBC Distribution Width 13.7 % (11.5-14.5); Red Blood Cell (RBC) Count 3.63 mill/uL (4.70-6.10); White Blood Cell (WBC) Count 17.8 thou/uL (4.8-10.8)
[2021-08-30 04:36] LABS: Lactic Acid 2.5 mmol/L (0.5-2.2)
[2021-08-30 05:02] LABS: Band 45 % (5-11); Lymphocytes 8 % (21-51); MDiff Complete? YES; Neutrophil 47 % (42-75); Platelet Morphology Comment Appears Increased
[2021-08-30 05:15] LABS: Anion Gap 13 mmol/L (10-20); BUN (Urea Nitrogen) 44 mg/dL (8.9-20.6); Calc. Creatinine Clearance 77 mL/min (70-130); Calcium 7.5 mg/dL (7.8-10.44); Carbon Dioxide 21 mmol/L (22-29); Chloride 116 mmol/L (98-107); Glucose 315 mg/dL (70-105); Magnesium 2.2 mg/dL (1.6-2.6); Phosphorus 5.9 mg/dL (2.3-4.7); Potassium 5.1 mmol/L (3.5-5.1); Sodium 145 mmol/L (136-145)
[2021-08-30 07:15] LABS: Direct LDL Cholesterol 15 mg/dL (0-99)
[2021-08-30] MEDS: Piperacillin/Tazobactam 3.375 GM in Dextrose 5% in Water 100 ML IVPB SCH ×3 (07:42→22:13)
[2021-08-30 08:32] LABS: Actual Bicarbonate (HCO3a) 19.4 mEq/L (22-28); Base Excess (BEa) -4.8 mEq/L (-2.0 to +3.0); CO2 Tension 32.8 mmHg (35.0-45.0); Calcium, Ionized (arterial) 1.09 mmol/L (1.12-1.30); Carboxyhemoglobin (COHb) 0.5 gm% (0.0-3.0); Potassium - ABG Lab 4.15 mmol/L (3.70-5.30); pH, Arterial 7.39 (7.35-7.45)
[2021-08-30 08:33] LABS: Puncture Site RRA
[2021-08-30] MEDS ORDERED: Calcium Chloride 1 GM/10 ML Abboject SYRINGE IVP SCH (09:45)
[2021-08-30] MEDS: Enoxaparin Sodium 30 MG/0.3 ML SYRINGE SC SCH ×2 (09:51→19:24)
[2021-08-30] MEDS: Micafungin 100 MG in Sodium Chloride 0.9% 100 ML IVPB SCH (09:51)
[2021-08-30] MEDS: Pantoprazole 40 MG VIAL IVP SCH (10:07)
[2021-08-30] MEDS: Norepinephrine 16 MG in Dextrose 5% in Water 234 ML IVPB SCH (13:27)
[2021-08-30] MEDS: Albumin 25% 25 GM/100 ML BOT IVPB SCH (18:35)
[2021-08-30] MEDS: POTASSIUM PHOSPHATE IV SCH (21:53)
[2021-08-30] MEDS: MULTIVITAMINS IV SCH (21:53)
[2021-08-30] MEDS: [UNRECOGNIZED DRUG - OTHER] IV SCH (21:53)
[2021-08-30] MEDS: SODIUM PHOSPHATE IV SCH (21:53)
[2021-08-30] MEDS: POTASSIUM CHLORIDE IV SCH (21:53)
[2021-08-30] MEDS: [UNRECOGNIZED DRUG - OTHER] IV SCH (21:53)
[2021-08-30] MEDS: MAGNESIUM SULFATE IV SCH (21:53)
[2021-08-30] MEDS: CALCIUM GLUCONATE IV SCH (21:53)
[2021-08-31] MEDS: Insulin Regular 300 UNITS/3 ML VIAL SC PRN ×3 (00:38→16:48)
[2021-08-31] MEDS: Albumin 25% 25 GM/100 ML BOT IVPB SCH ×3 (01:05→16:46)
[2021-08-31] MEDS: Dexmedetomidine 1,000 MCG in Sodium Chloride 0.9% 250 ML 240 ML IVPB SCH ×2 (02:13→15:24)
[2021-08-31] MEDS ORDERED: Fentanyl CADD 100 ML ONE ×2 (03:10→16:52)
[2021-08-31] MEDS: Fentanyl CADD 100 ML IV SCH ×2 (03:13→16:53)
[2021-08-31 04:27] LABS: #Eosinphils 0.1 thou/uL (0.0-0.7); #Lymphocytes 1.1 thou/uL (1.20-3.40); #Monocytes 0.5 thou/uL (0.11-0.59); #Neutrophils 7.3 thou/uL (1.40-6.50); %Eosinophils 0.9 % (0.0-10.0); %Lymphocytes 12.1 % (21.0-51.0); %Monocytes 5.3 % (0.0-10.0); %Neutrophils 81.6 % (42.0-75.0); Hemoglobin 9.1 g/dL (14.0-18.0); Mean Corpuscular HGB CONC 32.4 g/dL (32.0-36.0); Mean Corpuscular Hemoglobin 32.1 pg (27.0-31.0); Mean Corpuscular Volume 98.9 fL (78.0-98.0); Mean Platelet Volume 8.2 fL (7.4-10.4); Platelet Count 448 thou/uL (130-400); RBC Distribution Width 13.4 % (11.5-14.5); Red Blood Cell (RBC) Count 2.84 mill/uL (4.70-6.10); White Blood Cell (WBC) Count 8.9 thou/uL (4.8-10.8)
[2021-08-31 04:45] LABS: Anion Gap 13 mmol/L (10-20); BUN (Urea Nitrogen) 38 mg/dL (8.9-20.6); Calc. Creatinine Clearance 100 mL/min (70-130); Calcium 8.5 mg/dL (7.8-10.44); Carbon Dioxide 23 mmol/L (22-29); Chloride 115 mmol/L (98-107); Glucose 169 mg/dL (70-105); Magnesium 2.2 mg/dL (1.6-2.6); Phosphorus 2.7 mg/dL (2.3-4.7); Potassium 4.5 mmol/L (3.5-5.1); Sodium 146 mmol/L (136-145)
[2021-08-31] MEDS ORDERED: Fentanyl 100 MCG/2 ML VIAL ONE (06:58)
[2021-08-31] MEDS: Enoxaparin Sodium 30 MG/0.3 ML SYRINGE SC SCH ×2 (07:05→21:49)
[2021-08-31] MEDS ORDERED: Rocuronium Bromide 10 MG/ML (10ML VIAL) ONE (07:45)
[2021-08-31] MEDS ORDERED: PHENYLEPHRINE-NS 100 MCG/ML 10 ML SYRINGE ONE (07:45)
[2021-08-31] MEDS ORDERED: Vecuronium 10 MG VIAL ONE (07:45)
[2021-08-31] MEDS ORDERED: PROPOFOL 200 MG/20 ML VIAL ONE (07:45)
[2021-08-31] MEDS: Piperacillin/Tazobactam 3.375 GM in Dextrose 5% in Water 100 ML IVPB SCH ×3 (08:07→23:40)
[2021-08-31] MEDS ORDERED: Rocuronium Bromide 50 MG/5 ML VIAL ONE (08:59)
[2021-08-31] MEDS: Micafungin 100 MG in Sodium Chloride 0.9% 100 ML IVPB SCH (10:06)
[2021-08-31] MEDS: Lactated Ringer's 1,000 ML IV SCH (11:00)
[2021-08-31] MEDS: Pantoprazole 40 MG VIAL IVP SCH (13:27)
[2021-08-31] MEDS: Midazolam HCl 2 mg/2 ml Vial SLOW IVP PRN (20:37)
[2021-08-31] MEDS: CALCIUM GLUCONATE IV SCH (21:53)
[2021-08-31] MEDS: MULTIVITAMINS IV SCH (21:53)
[2021-08-31] MEDS: [UNRECOGNIZED DRUG - OTHER] IV SCH (21:53)
[2021-08-31] MEDS: MAGNESIUM SULFATE IV SCH (21:53)
[2021-09-01] MEDS: Insulin Regular 300 UNITS/3 ML VIAL SC PRN ×5 (00:18→21:37)
[2021-09-01] MEDS: Dexmedetomidine 1,000 MCG in Sodium Chloride 0.9% 250 ML 240 ML IVPB SCH ×2 (04:05→17:14)
[2021-09-01] MEDS: Midazolam HCl 2 mg/2 ml Vial SLOW IVP PRN (04:05)
[2021-09-01 04:17] LABS: #Lymphocytes 0.7 thou/uL (1.20-3.40); #Monocytes 0.7 thou/uL (0.11-0.59); #Neutrophils 8.3 thou/uL (1.40-6.50); %Basophils 0.1 % (0.0-1.0); %Eosinophils 0.1 % (0.0-10.0); %Monocytes 6.8 % (0.0-10.0); Hemoglobin 8.5 g/dL (14.0-18.0); Mean Corpuscular HGB CONC 31.3 g/dL (32.0-36.0); Mean Platelet Volume 8.2 fL (7.4-10.4); Platelet Count 442 thou/uL (130-400); RBC Distribution Width 13.2 % (11.5-14.5); Red Blood Cell (RBC) Count 2.72 mill/uL (4.70-6.10); White Blood Cell (WBC) Count 9.7 thou/uL (4.8-10.8)
[2021-09-01 04:42] LABS: Anion Gap 13 mmol/L (10-20); BUN (Urea Nitrogen) 41 mg/dL (8.9-20.6); Calc. Creatinine Clearance 111 mL/min (70-130); Calcium 9.2 mg/dL (7.8-10.44); Carbon Dioxide 22 mmol/L (22-29); Chloride 114 mmol/L (98-107); Glucose 270 mg/dL (70-105); Magnesium 2.2 mg/dL (1.6-2.6); Phosphorus 2.3 mg/dL (2.3-4.7); Sodium 145 mmol/L (136-145)
[2021-09-01] MEDS ORDERED: Fentanyl CADD 100 ML ONE ×2 (04:49→18:57)
[2021-09-01] MEDS: Fentanyl CADD 100 ML IV SCH ×2 (05:01→18:59)
[2021-09-01] MEDS: Lactated Ringer's 1,000 ML IV SCH (07:23)
[2021-09-01] MEDS: Piperacillin/Tazobactam 3.375 GM in Dextrose 5% in Water 100 ML IVPB SCH ×3 (07:23→23:45)
[2021-09-01] MEDS: Pantoprazole 40 MG VIAL IVP SCH (08:09)
[2021-09-01] MEDS: Micafungin 100 MG in Sodium Chloride 0.9% 100 ML IVPB SCH (08:09)
[2021-09-01] MEDS ORDERED: Lantus 1000 UNITS/10 ML VIAL SC SCH (09:00)
[2021-09-01] MEDS: Enoxaparin Sodium 30 MG/0.3 ML SYRINGE SC SCH ×2 (10:20→20:58)
[2021-09-01] MEDS ORDERED: POTASSIUM PHOSPHATE IV SCH (14:00)
[2021-09-01] MEDS ORDERED: SODIUM ACETATE IV SCH (14:00)
[2021-09-01] MEDS ORDERED: [UNRECOGNIZED DRUG - OTHER] IV SCH (14:00)
[2021-09-01] MEDS ORDERED: CALCIUM GLUCONATE IV SCH (14:00)
[2021-09-02 04:32] LABS: #Eosinphils 0.1 thou/uL (0.0-0.7); #Lymphocytes 1.1 thou/uL (1.20-3.40); #Monocytes 0.8 thou/uL (0.11-0.59); #Neutrophils 9.3 thou/uL (1.40-6.50); %Basophils 0.1 % (0.0-1.0); %Eosinophils 0.5 % (0.0-10.0); %Lymphocytes 9.6 % (21.0-51.0); %Monocytes 7.4 % (0.0-10.0); %Neutrophils 82.4 % (42.0-75.0); Hemoglobin 9.1 g/dL (14.0-18.0); Mean Corpuscular HGB CONC 31.8 g/dL (32.0-36.0); Mean Corpuscular Hemoglobin 31.3 pg (27.0-31.0); Mean Corpuscular Volume 98.6 fL (78.0-98.0); Mean Platelet Volume 8.5 fL (7.4-10.4); Platelet Count 467 thou/uL (130-400); RBC Distribution Width 13.2 % (11.5-14.5); Red Blood Cell (RBC) Count 2.91 mill/uL (4.70-6.10); White Blood Cell (WBC) Count 11.3 thou/uL (4.8-10.8)
[2021-09-02 04:53] LABS: Anion Gap 13 mmol/L (10-20); BUN (Urea Nitrogen) 41 mg/dL (8.9-20.6); Calc. Creatinine Clearance 124 mL/min (70-130); Calcium 8.8 mg/dL (7.8-10.44); Carbon Dioxide 22 mmol/L (22-29); Chloride 114 mmol/L (98-107); Glucose 197 mg/dL (70-105); Magnesium 1.9 mg/dL (1.6-2.6); Phosphorus 1.3 mg/dL (2.3-4.7); Potassium 3.5 mmol/L (3.5-5.1); Sodium 145 mmol/L (136-145)
[2021-09-02] MEDS: Insulin Regular 300 UNITS/3 ML VIAL SC PRN ×3 (04:59→21:11)
[2021-09-02] MEDS: Dexmedetomidine 1,000 MCG in Sodium Chloride 0.9% 250 ML 240 ML IVPB SCH (05:07)
[2021-09-02] MEDS ORDERED: Ketorolac Tromethamine 30 MG/ML VIAL IVP SCH (06:15)
[2021-09-02] MEDS: Morphine 4 MG/ML VIAL SLOW IVP PRN ×5 (06:15→23:58)
[2021-09-02] MEDS ORDERED: Magnesium Sulfate 3 GM in Sodium Chloride 0.9% 250 ML 250 ML IVPB SCH (06:30)
[2021-09-02] MEDS ORDERED: Potassium Phosphate 30 MMOL in Sodium Chloride 0.9% 250 ML 250 ML IVPB SCH (06:30)
[2021-09-02] MEDS: Piperacillin/Tazobactam 3.375 GM in Dextrose 5% in Water 100 ML IVPB SCH ×2 (07:11→14:56)
[2021-09-02] MEDS: Lactated Ringer's 1,000 ML IV SCH (07:14)
[2021-09-02] MEDS: Micafungin 100 MG in Sodium Chloride 0.9% 100 ML IVPB SCH (08:35)
[2021-09-02] MEDS: Enoxaparin Sodium 30 MG/0.3 ML SYRINGE SC SCH ×2 (08:35→21:12)
[2021-09-02] MEDS: Pantoprazole 40 MG VIAL IVP SCH (08:36)
[2021-09-02] MEDS: Lantus 1000 UNITS/10 ML VIAL SC SCH ×2 (08:37→21:10)
[2021-09-02] MEDS ORDERED: POTASSIUM PHOSPHATE IV SCH ×3 (11:13→14:00)
[2021-09-02] MEDS ORDERED: CALCIUM GLUCONATE IV SCH ×3 (11:13→14:00)
[2021-09-02] MEDS ORDERED: [UNRECOGNIZED DRUG - OTHER] IV SCH ×2 (11:13→14:00)
[2021-09-02] MEDS ORDERED: SODIUM ACETATE IV SCH ×3 (11:13→14:00)
[2021-09-02 11:54] LABS: SARS-CoV-2 PCR by NAA Not Detected (NotDetected)
[2021-09-02] MEDS: Ketorolac Tromethamine 30 MG/ML VIAL IVP SCH ×2 (12:04→17:24)
[2021-09-02] MEDS ORDERED: [UNRECOGNIZED DRUG - OTHER] IV SCH (14:00)
[2021-09-02 15:12] LABS: ALT (SGPT) 106 U/L (8-55); AST (SGOT) 109 U/L (5-34); Albumin 2.6 g/dL (3.5-5.0); Alkaline Phosphatase 90 U/L (40-110); Bilirubin, Direct 6.8 mg/dL (0.1-0.3); Bilirubin, Total 8.7 mg/dL (0.2-1.2); Protein, Total 5.1 g/dL (6.0-8.3)
[2021-09-03] MEDS: Ketorolac Tromethamine 30 MG/ML VIAL IVP SCH ×5 (00:01→23:34)
[2021-09-03] MEDS: Insulin Regular 300 UNITS/3 ML VIAL SC PRN ×5 (00:25→21:02)
[2021-09-03] MEDS: Dexmedetomidine 1,000 MCG in Sodium Chloride 0.9% 250 ML 240 ML IVPB SCH ×2 (01:49→13:45)
[2021-09-03 04:30] LABS: Band 20 % (5-11); Hemoglobin 8.7 g/dL (14.0-18.0); Hypochromia SLIGHT = 6-15 cells (100X) (0-5/hpf); Lymphocytes 14 % (21-51); MDiff Complete? YES; Mean Corpuscular HGB CONC 32.2 g/dL (32.0-36.0); Mean Corpuscular Hemoglobin 31.5 pg (27.0-31.0); Mean Corpuscular Volume 97.9 fL (78.0-98.0); Mean Platelet Volume 8.4 fL (7.4-10.4); Monocytes 10 % (0-10); Neutrophil 56 % (42-75); Platelet Count 440 thou/uL (130-400); Platelet Morphology Comment Appears Increased; RBC Distribution Width 13.4 % (11.5-14.5); Red Blood Cell (RBC) Count 2.77 mill/uL (4.70-6.10); White Blood Cell (WBC) Count 10.3 thou/uL (4.8-10.8)
[2021-09-03] MEDS: Morphine 4 MG/ML VIAL SLOW IVP PRN ×5 (04:32→21:09)
[2021-09-03 04:45] LABS: Anion Gap 13 mmol/L (10-20); BUN (Urea Nitrogen) 39 mg/dL (8.9-20.6); Calc. Creatinine Clearance 121 mL/min (70-130); Calcium 8.3 mg/dL (7.8-10.44); Carbon Dioxide 21 mmol/L (22-29); Chloride 113 mmol/L (98-107); Glucose 184 mg/dL (70-105); Magnesium 2.2 mg/dL (1.6-2.6); Phosphorus 3.2 mg/dL (2.3-4.7); Potassium 3.2 mmol/L (3.5-5.1); Sodium 144 mmol/L (136-145)
[2021-09-03] MEDS: Piperacillin/Tazobactam 3.375 GM in Dextrose 5% in Water 100 ML IVPB SCH ×4 (07:29→23:32)
[2021-09-03] MEDS: Lactated Ringer's 1,000 ML IV SCH (07:30)
[2021-09-03] MEDS: Enoxaparin Sodium 30 MG/0.3 ML SYRINGE SC SCH ×2 (08:37→21:05)
[2021-09-03] MEDS: Lantus 1000 UNITS/10 ML VIAL SC SCH ×2 (08:37→21:04)
[2021-09-03] MEDS: Pantoprazole 40 MG VIAL IVP SCH (08:38)
[2021-09-03] MEDS: Micafungin 100 MG in Sodium Chloride 0.9% 100 ML IVPB SCH (08:38)
[2021-09-03] MEDS: [UNRECOGNIZED DRUG - OTHER] IV SCH (14:57)
[2021-09-03] MEDS: POTASSIUM PHOSPHATE IV SCH (14:57)
[2021-09-03] MEDS: SODIUM ACETATE IV SCH (14:57)
[2021-09-03] MEDS: CALCIUM GLUCONATE IV SCH (14:57)
[2021-09-03] MEDS: Ondansetron PF 4 MG/2 ML Vial IVP PRN (17:15)
[2021-09-03 18:15] LABS: Magnesium 2.1 mg/dL (1.6-2.6)
[2021-09-04] MEDS: Morphine 4 MG/ML VIAL SLOW IVP PRN ×5 (01:10→22:45)
[2021-09-04] MEDS ORDERED: Fentanyl 100 MCG/2 ML VIAL SLOW IVP SCH (02:15)
[2021-09-04 04:31] LABS: Anion Gap 12 mmol/L (10-20); BUN (Urea Nitrogen) 31 mg/dL (8.9-20.6); Calc. Creatinine Clearance 132 mL/min (70-130); Calcium 8.2 mg/dL (7.8-10.44); Carbon Dioxide 22 mmol/L (22-29); Chloride 111 mmol/L (98-107); Glucose 170 mg/dL (70-105); Phosphorus 3.3 mg/dL (2.3-4.7); Potassium 3.3 mmol/L (3.5-5.1); Sodium 142 mmol/L (136-145)
[2021-09-04] MEDS: Ketorolac Tromethamine 30 MG/ML VIAL IVP SCH ×3 (05:14→17:20)
[2021-09-04 05:15] LABS: Band 30 % (5-11); Differential Comment Plasma-like Cell(s); Hemoglobin 8.3 g/dL (14.0-18.0); Lymphocytes 8 % (21-51); MDiff Complete? YES; Mean Corpuscular HGB CONC 32.9 g/dL (32.0-36.0); Mean Corpuscular Hemoglobin 32.2 pg (27.0-31.0); Mean Corpuscular Volume 97.7 fL (78.0-98.0); Mean Platelet Volume 8.4 fL (7.4-10.4); Metamyelocyte 2 % (0-0); Monocytes 2 % (0-10); Myelocyte 5 % (0-0); Neutrophil 41 % (42-75); Platelet Count 447 thou/uL (130-400); Platelet Morphology Comment Appears Increased; RBC Distribution Width 13.4 % (11.5-14.5); RBC Morphology Normal; Reactive Lymphocytes 8 % (0-10); Red Blood Cell (RBC) Count 2.56 mill/uL (4.70-6.10); Reflex for Review?? YES; White Blood Cell (WBC) Count 12.3 thou/uL (4.8-10.8)
[2021-09-04] MEDS: Insulin Regular 300 UNITS/3 ML VIAL SC PRN ×3 (05:48→22:01)
[2021-09-04] MEDS: Piperacillin/Tazobactam 3.375 GM in Dextrose 5% in Water 100 ML IVPB SCH ×3 (08:11→22:04)
[2021-09-04] MEDS: Enoxaparin Sodium 30 MG/0.3 ML SYRINGE SC SCH ×2 (08:12→22:03)
[2021-09-04] MEDS: Micafungin 100 MG in Sodium Chloride 0.9% 100 ML IVPB SCH (08:14)
[2021-09-04] MEDS: Lantus 1000 UNITS/10 ML VIAL SC SCH ×2 (09:07→22:02)
[2021-09-04] MEDS: Pantoprazole 40 MG VIAL IVP SCH (09:08)
[2021-09-04] MEDS ORDERED: Potassium Phosphate 30 MMOL in Sodium Chloride 0.9% 500 ML IVPB SCH (13:00)
[2021-09-04] MEDS ORDERED: Morphine 4 MG/ML VIAL SLOW IVP SCH (13:15)
[2021-09-04] MEDS: POTASSIUM PHOSPHATE IV SCH (13:55)
[2021-09-04] MEDS: [UNRECOGNIZED DRUG - OTHER] IV SCH (13:55)
[2021-09-04] MEDS: CALCIUM GLUCONATE IV SCH (13:55)
[2021-09-04] MEDS: SODIUM ACETATE IV SCH (13:55)
[2021-09-04] MEDS: Lactated Ringer's 1,000 ML IV SCH (17:21)
[2021-09-04] MEDS ORDERED: Propofol 1,000 MG/100 ML VIAL IV ONE (19:11)
[2021-09-04] MEDS ORDERED: Ketorolac Tromethamine 30 MG/ML VIAL IVP SCH (19:15)
[2021-09-05] MEDS: Morphine 4 MG/ML VIAL SLOW IVP PRN ×6 (00:51→22:30)
[2021-09-05] MEDS: Insulin Regular 300 UNITS/3 ML VIAL SC PRN ×3 (00:53→12:41)
[2021-09-05 04:28] LABS: Anion Gap 14 mmol/L (10-20); BUN (Urea Nitrogen) 34 mg/dL (8.9-20.6); Calc. Creatinine Clearance 123 mL/min (70-130); Calcium 8.2 mg/dL (7.8-10.44); Carbon Dioxide 22 mmol/L (22-29); Chloride 111 mmol/L (98-107); Glucose 165 mg/dL (70-105); Magnesium 2.2 mg/dL (1.6-2.6); Phosphorus 3.5 mg/dL (2.3-4.7); Potassium 3.5 mmol/L (3.5-5.1); Sodium 143 mmol/L (136-145)
[2021-09-05 04:29] LABS: Band 24 % (5-11); Hemoglobin 7.9 g/dL (14.0-18.0); Hypochromia SLIGHT = 6-15 cells (100X) (0-5/hpf); Lymphocytes 16 % (21-51); MDiff Complete? YES; Mean Corpuscular HGB CONC 31.7 g/dL (32.0-36.0); Mean Corpuscular Volume 97.7 fL (78.0-98.0); Mean Platelet Volume 7.9 fL (7.4-10.4); Neutrophil 60 % (42-75); Platelet Count 483 thou/uL (130-400); Platelet Morphology Comment Appears Increased; RBC Distribution Width 13.5 % (11.5-14.5); Red Blood Cell (RBC) Count 2.56 mill/uL (4.70-6.10); White Blood Cell (WBC) Count 12.6 thou/uL (4.8-10.8)
[2021-09-05] MEDS: Ketorolac Tromethamine 30 MG/ML VIAL IVP SCH ×5 (07:36→20:09)
[2021-09-05] MEDS: Lactated Ringer's 1,000 ML IV SCH (07:36)
[2021-09-05] MEDS: Piperacillin/Tazobactam 3.375 GM in Dextrose 5% in Water 100 ML IVPB SCH ×2 (08:25→16:18)
[2021-09-05] MEDS ORDERED: Potassium Phosphate 30 MMOL in Sodium Chloride 0.9% 250 ML 250 ML IVPB SCH (08:45)
[2021-09-05] MEDS: Enoxaparin Sodium 30 MG/0.3 ML SYRINGE SC SCH ×2 (09:13→20:15)
[2021-09-05] MEDS: Pantoprazole 40 MG VIAL IVP SCH (09:14)
[2021-09-05] MEDS: Lantus 1000 UNITS/10 ML VIAL SC SCH ×2 (09:14→20:15)
[2021-09-05] MEDS ORDERED: Heparin 1,000 UNITS/ML VIAL ONE (11:27)
[2021-09-05] MEDS ORDERED: [UNRECOGNIZED DRUG - OTHER] IV SCH (14:00)
[2021-09-05] MEDS ORDERED: SODIUM PHOSPHATE IV SCH (14:00)
[2021-09-05] MEDS ORDERED: POTASSIUM ACETATE IV SCH (14:00)
[2021-09-05] MEDS ORDERED: SODIUM ACETATE IV SCH (14:00)
[2021-09-06] MEDS: Piperacillin/Tazobactam 3.375 GM in Dextrose 5% in Water 100 ML IVPB SCH ×3 (00:29→14:03)
[2021-09-06] MEDS: Ketorolac Tromethamine 30 MG/ML VIAL IVP SCH ×4 (00:42→19:52)
[2021-09-06 03:04] LABS: Hemoglobin 7.4 g/dL (14.0-18.0); Mean Corpuscular HGB CONC 33.2 g/dL (32.0-36.0); Mean Corpuscular Hemoglobin 32.2 pg (27.0-31.0); Mean Corpuscular Volume 97.1 fL (78.0-98.0); Mean Platelet Volume 8.2 fL (7.4-10.4); Platelet Count 492 thou/uL (130-400); RBC Distribution Width 13.6 % (11.5-14.5); Red Blood Cell (RBC) Count 2.29 mill/uL (4.70-6.10); White Blood Cell (WBC) Count 13.8 thou/uL (4.8-10.8)
[2021-09-06 03:22] LABS: Anion Gap 14 mmol/L (10-20); BUN (Urea Nitrogen) 34 mg/dL (8.9-20.6); Calc. Creatinine Clearance 118 mL/min (70-130); Carbon Dioxide 22 mmol/L (22-29); Chloride 110 mmol/L (98-107); Glucose 271 mg/dL (70-105); Magnesium 2.1 mg/dL (1.6-2.6); Phosphorus 3.8 mg/dL (2.3-4.7); Potassium 3.6 mmol/L (3.5-5.1); Sodium 142 mmol/L (136-145)
[2021-09-06 05:30] LABS: Band 25 % (5-11); Eosinophils 2 % (0-10); Lymphocytes 11 % (21-51); MDiff Complete? YES; Metamyelocyte 3 % (0-0); Monocytes 5 % (0-10); Myelocyte 1 % (0-0); Neutrophil 49 % (42-75); Platelet Morphology Comment Appears Increased; Reactive Lymphocytes 4 % (0-10)
[2021-09-06] MEDS: Insulin Regular 300 UNITS/3 ML VIAL SC PRN (05:52)
[2021-09-06] MEDS: Morphine 4 MG/ML VIAL SLOW IVP PRN ×4 (07:24→21:35)
[2021-09-06] MEDS: Lorazepam 2 MG/ML VIAL SLOW IVP PRN ×2 (09:58→17:35)
[2021-09-06] MEDS: Lantus 1000 UNITS/10 ML VIAL SC SCH ×2 (10:01→21:36)
[2021-09-06] MEDS: Pantoprazole 40 MG VIAL IVP SCH (10:02)
[2021-09-06] MEDS: Enoxaparin Sodium 30 MG/0.3 ML SYRINGE SC SCH ×2 (10:02→21:34)
[2021-09-06] MEDS: POTASSIUM ACETATE IV SCH (14:03)
[2021-09-06] MEDS: [UNRECOGNIZED DRUG - OTHER] IV SCH (14:03)
[2021-09-06] MEDS: SODIUM PHOSPHATE IV SCH (14:03)
[2021-09-06] MEDS: SODIUM ACETATE IV SCH (14:03)
[2021-09-06] MEDS ORDERED: Piperacillin/Tazobactam 3.375 GM in Sodium Chloride 0.9% 100 ML IVPB SCH (17:15)
[2021-09-06] MEDS ORDERED: Piperacillin/Tazobactam 3.375 GM in Dextrose 5% in Water 100 ML IVPB SCH (18:00)
[2021-09-06] MEDS: Fluconazole In NaCl,Iso-Osm 400 MG in Premix Bag 1 BAG IVPB SCH (19:53)
[2021-09-06] MEDS: Piperacillin/Tazobactam 3.375 GM in Sodium Chloride 0.9% 100 ML IVPB SCH (23:00)
[2021-09-07] MEDS: Ketorolac Tromethamine 30 MG/ML VIAL IVP SCH ×4 (01:19→18:28)
[2021-09-07] MEDS: Insulin Regular 300 UNITS/3 ML VIAL SC PRN (01:20)
[2021-09-07 06:21] LABS: Band 27 % (5-11); Hemoglobin 6.5 g/dL (14.0-18.0); Hypochromia SLIGHT = 6-15 cells (100X) (0-5/hpf); Lymphocytes 12 % (21-51); MDiff Complete? YES; Mean Corpuscular Hemoglobin 31.9 pg (27.0-31.0); Mean Corpuscular Volume 96.5 fL (78.0-98.0); Mean Platelet Volume 7.9 fL (7.4-10.4); Monocytes 1 % (0-10); Neutrophil 59 % (42-75); Platelet Count 540 thou/uL (130-400); Platelet Morphology Comment Appears Increased; RBC Distribution Width 13.6 % (11.5-14.5); Reactive Lymphocytes 1 % (0-10); Red Blood Cell (RBC) Count 2.03 mill/uL (4.70-6.10); White Blood Cell (WBC) Count 11.8 thou/uL (4.8-10.8)
[2021-09-07 06:23] LABS: Anion Gap 12 mmol/L (10-20); BUN (Urea Nitrogen) 37 mg/dL (8.9-20.6); Calc. Creatinine Clearance 127 mL/min (70-130); Calcium 8.3 mg/dL (7.8-10.44); Carbon Dioxide 24 mmol/L (22-29); Chloride 109 mmol/L (98-107); Glucose 151 mg/dL (70-105); Magnesium 2.2 mg/dL (1.6-2.6); Phosphorus 3.6 mg/dL (2.3-4.7); Potassium 3.4 mmol/L (3.5-5.1); Sodium 142 mmol/L (136-145)
[2021-09-07] MEDS: Piperacillin/Tazobactam 3.375 GM in Sodium Chloride 0.9% 100 ML IVPB SCH (06:54)
[2021-09-07] MEDS ORDERED: Morphine 4 MG/ML VIAL ONE (10:01)
[2021-09-07] MEDS: Morphine 4 MG/ML VIAL SLOW IVP PRN ×3 (10:49→22:27)
[2021-09-07] MEDS ORDERED: Morphine 4 MG/ML VIAL SLOW IVP PRN (10:52)
[2021-09-07] MEDS: Enoxaparin Sodium 30 MG/0.3 ML SYRINGE SC SCH (10:52)
[2021-09-07] MEDS ORDERED: Morphine 4 MG/ML VIAL SLOW IVP SCH (11:00)
[2021-09-07] MEDS: Lantus 1000 UNITS/10 ML VIAL SC SCH ×2 (11:23→20:44)
[2021-09-07] MEDS: Pantoprazole 40 MG VIAL IVP SCH (11:23)
[2021-09-07] MEDS ORDERED: MEROPENEM 1 GM/50 ML 1 GM in Premix Bag 1 BAG IVPB SCH (12:15)
[2021-09-07] MEDS ORDERED: D15W-AA 5% with Lytes 2,000 ML IV SCH (14:00)
[2021-09-07] MEDS ORDERED: SODIUM PHOSPHATE IV SCH (14:00)
[2021-09-07] MEDS ORDERED: POTASSIUM ACETATE IV SCH (14:00)
[2021-09-07] MEDS ORDERED: [UNRECOGNIZED DRUG - OTHER] IV SCH (14:00)
[2021-09-07] MEDS ORDERED: SODIUM ACETATE IV SCH (14:00)
[2021-09-07] MEDS ORDERED: Cyanocobalamin 1000 MCG/ML VIAL IM SCH (15:00)
[2021-09-07] MEDS: Lorazepam 2 MG/ML VIAL SLOW IVP PRN (18:28)
[2021-09-07] MEDS: Fluconazole In NaCl,Iso-Osm 400 MG in Premix Bag 1 BAG IVPB SCH (20:43)
[2021-09-07] MEDS: MEROPENEM 1 GM/50 ML 1 GM in Premix Bag 1 BAG IVPB SCH (20:43)
[2021-09-07] MEDS: Famotidine/PF 20 mg/2ml Vial SLOW IVP SCH (20:44)
[2021-09-07] MEDS ORDERED: Famotidine/PF 20 mg/2ml Vial SLOW IVP SCH (21:00)
[2021-09-08] MEDS: Ketorolac Tromethamine 30 MG/ML VIAL IVP SCH ×2 (01:05→07:56)
[2021-09-08] MEDS: Lorazepam 2 MG/ML VIAL SLOW IVP PRN ×2 (01:36→18:27)
[2021-09-08] MEDS: Meropenem 1 GM in Sodium Chloride 0.9% 100 ML IVPB SCH ×3 (05:16→21:03)
[2021-09-08 05:33] LABS: Anion Gap 12 mmol/L (10-20); BUN (Urea Nitrogen) 36 mg/dL (8.9-20.6); Calc. Creatinine Clearance 124 mL/min (70-130); Carbon Dioxide 23 mmol/L (22-29); Chloride 107 mmol/L (98-107); Glucose 179 mg/dL (70-105); Magnesium 2.3 mg/dL (1.6-2.6); Phosphorus 3.4 mg/dL (2.3-4.7); Potassium 3.5 mmol/L (3.5-5.1); Sodium 138 mmol/L (136-145)
[2021-09-08 05:36] LABS: Band 25 % (5-11); Hemoglobin 7.4 g/dL (14.0-18.0); Lymphocytes 13 % (21-51); MDiff Complete? YES; Mean Corpuscular HGB CONC 32.7 g/dL (32.0-36.0); Mean Corpuscular Volume 94.6 fL (78.0-98.0); Mean Platelet Volume 7.6 fL (7.4-10.4); Monocytes 7 % (0-10); Neutrophil 55 % (42-75); Platelet Count 559 thou/uL (130-400); Platelet Morphology Comment Appears Increased; RBC Distribution Width 14.3 % (11.5-14.5); RBC Morphology Normal; Red Blood Cell (RBC) Count 2.38 mill/uL (4.70-6.10); White Blood Cell (WBC) Count 12.7 thou/uL (4.8-10.8)
[2021-09-08] MEDS: MEROPENEM 1 GM/50 ML 1 GM in Premix Bag 1 BAG IVPB SCH (07:10)
[2021-09-08] MEDS ORDERED: Potassium Chloride 40 MEQ in Premix Bag 1 BAG IVPB SCH (07:30)
[2021-09-08] MEDS: Lantus 1000 UNITS/10 ML VIAL SC SCH ×2 (07:57→21:04)
[2021-09-08] MEDS: Morphine 4 MG/ML VIAL SLOW IVP PRN ×4 (07:57→21:05)
[2021-09-08] MEDS: Famotidine/PF 20 mg/2ml Vial SLOW IVP SCH ×2 (07:57→21:05)
[2021-09-08] MEDS ORDERED: Enoxaparin Sodium 40 MG/0.4 ML SYRINGE SC SCH (09:00)
[2021-09-08] MEDS: POTASSIUM ACETATE IV SCH (14:23)
[2021-09-08] MEDS: SODIUM ACETATE IV SCH (14:23)
[2021-09-08] MEDS: SODIUM PHOSPHATE IV SCH (14:23)
[2021-09-08] MEDS: [UNRECOGNIZED DRUG - OTHER] IV SCH (14:23)
[2021-09-08] MEDS ORDERED: Vancomycin HCl 1.25 GM in Sodium Chloride 0.9% 250 ML 250 ML IVPB SCH (18:00)
[2021-09-08] MEDS: VANCOMYCIN 1.25 GM/250 ML BAG 1.25 GM in Premix Bag 1 BAG IVPB SCH (21:04)
[2021-09-08] MEDS: Fluconazole In NaCl,Iso-Osm 400 MG in Premix Bag 1 BAG IVPB SCH (21:04)
[2021-09-09] MEDS: Morphine 4 MG/ML VIAL SLOW IVP PRN ×6 (00:44→20:11)
[2021-09-09] MEDS: Lorazepam 2 MG/ML VIAL SLOW IVP PRN ×2 (03:40→20:12)
[2021-09-09] MEDS: VANCOMYCIN 1.25 GM/250 ML BAG 1.25 GM in Premix Bag 1 BAG IVPB SCH ×3 (03:42→17:35)
[2021-09-09] MEDS: Meropenem 1 GM in Sodium Chloride 0.9% 100 ML IVPB SCH ×3 (05:17→20:11)
[2021-09-09 06:16] LABS: Anion Gap 11 mmol/L (10-20); BUN (Urea Nitrogen) 29 mg/dL (8.9-20.6); Calc. Creatinine Clearance 139 mL/min (70-130); Carbon Dioxide 23 mmol/L (22-29); Chloride 107 mmol/L (98-107); Glucose 146 mg/dL (70-105); Magnesium 2.1 mg/dL (1.6-2.6); Phosphorus 2.6 mg/dL (2.3-4.7); Potassium 3.8 mmol/L (3.5-5.1); Sodium 137 mmol/L (136-145)
[2021-09-09 06:47] LABS: Hemoglobin 8.4 g/dL (14.0-18.0); Mean Corpuscular HGB CONC 33.9 g/dL (32.0-36.0); Mean Corpuscular Hemoglobin 31.8 pg (27.0-31.0); Mean Corpuscular Volume 93.7 fL (78.0-98.0); Mean Platelet Volume 7.9 fL (7.4-10.4); Platelet Count 587 thou/uL (130-400); RBC Distribution Width 13.7 % (11.5-14.5); Red Blood Cell (RBC) Count 2.63 mill/uL (4.70-6.10); White Blood Cell (WBC) Count 14.3 thou/uL (4.8-10.8)
[2021-09-09 08:05] LABS: Band 55 % (5-11); Lymphocytes 17 % (21-51); MDiff Complete? YES; Metamyelocyte 3 % (0-0); Monocytes 4 % (0-10); Myelocyte 5 % (0-0); Neutrophil 15 % (42-75); Platelet Morphology Comment Appears Increased; Polychromasia SLIGHT = 2-3 cells (100X) (0-2/hpf)
[2021-09-09] MEDS: Enoxaparin Sodium 40 MG/0.4 ML SYRINGE SC SCH (08:10)
[2021-09-09] MEDS: Ondansetron PF 4 MG/2 ML Vial IVP PRN ×2 (08:10→16:00)
[2021-09-09] MEDS: Lantus 1000 UNITS/10 ML VIAL SC SCH ×2 (08:11→20:13)
[2021-09-09] MEDS: Famotidine/PF 20 mg/2ml Vial SLOW IVP SCH ×2 (08:11→20:09)
[2021-09-09 10:20] LABS: Vancomycin, Trough 40.2 ug/mL
[2021-09-09] MEDS ORDERED: SODIUM PHOSPHATE IV SCH (14:00)
[2021-09-09] MEDS ORDERED: POTASSIUM ACETATE IV SCH (14:00)
[2021-09-09] MEDS ORDERED: SODIUM ACETATE IV SCH (14:00)
[2021-09-09] MEDS ORDERED: [UNRECOGNIZED DRUG - OTHER] IV SCH (14:00)
[2021-09-09] MEDS: Fat Emulsion 250 ML IVPB SCH (15:56)
[2021-09-09 17:30] LABS: Vancomycin, Trough 23.9 ug/mL
[2021-09-09] MEDS: Fluconazole In NaCl,Iso-Osm 400 MG in Premix Bag 1 BAG IVPB SCH (20:09)
[2021-09-10] MEDS: Ondansetron PF 4 MG/2 ML Vial IVP PRN ×3 (01:29→20:48)
[2021-09-10] MEDS: Vancomycin 1 GM in Premix Bag 1 BAG IVPB SCH ×3 (01:29→19:47)
[2021-09-10] MEDS: Morphine 4 MG/ML VIAL SLOW IVP PRN ×8 (01:29→22:46)
[2021-09-10] MEDS: Meropenem 1 GM in Sodium Chloride 0.9% 100 ML IVPB SCH ×4 (05:09→18:08)
[2021-09-10 06:37] LABS: Anion Gap 13 mmol/L (10-20); BUN (Urea Nitrogen) 26 mg/dL (8.9-20.6); Calc. Creatinine Clearance 143 mL/min (70-130); Carbon Dioxide 22 mmol/L (22-29); Chloride 103 mmol/L (98-107); Glucose 125 mg/dL (70-105); Magnesium 1.9 mg/dL (1.6-2.6); Phosphorus 2.9 mg/dL (2.3-4.7); Potassium 3.7 mmol/L (3.5-5.1); Sodium 134 mmol/L (136-145)
[2021-09-10 06:54] LABS: Hemoglobin 7.9 g/dL (14.0-18.0); Mean Corpuscular HGB CONC 33.5 g/dL (32.0-36.0); Mean Corpuscular Hemoglobin 31.3 pg (27.0-31.0); Mean Corpuscular Volume 93.6 fL (78.0-98.0); Mean Platelet Volume 7.3 fL (7.4-10.4); Platelet Count 593 thou/uL (130-400); RBC Distribution Width 13.3 % (11.5-14.5); Red Blood Cell (RBC) Count 2.52 mill/uL (4.70-6.10); White Blood Cell (WBC) Count 16.3 thou/uL (4.8-10.8)
[2021-09-10 06:56] LABS: Band 37 % (5-11); Lymphocytes 7 % (21-51); MDiff Complete? YES; Metamyelocyte 5 % (0-0); Monocytes 11 % (0-10); Myelocyte 10 % (0-0); Neutrophil 30 % (42-75)
[2021-09-10] MEDS ORDERED: Potassium Phosphate 30 MMOL in Sodium Chloride 0.9% 250 ML 250 ML IVPB SCH (07:45)
[2021-09-10] MEDS ORDERED: Magnesium Sulfate 3 GM, Potassium Phosphate 30 MMOL in Sodium Chloride 0.9% 250 ML 250 ML IV SCH ×2 (07:45→11:00)
[2021-09-10] MEDS: Famotidine/PF 20 mg/2ml Vial SLOW IVP SCH ×2 (07:50→20:48)
[2021-09-10] MEDS: Lantus 1000 UNITS/10 ML VIAL SC SCH ×2 (07:52→22:48)
[2021-09-10] MEDS: Enoxaparin Sodium 40 MG/0.4 ML SYRINGE SC SCH (07:53)
[2021-09-10] MEDS: Fat Emulsion 250 ML IVPB SCH (15:00)
[2021-09-10] MEDS: Multivitamins, Adult 10 ML, TRACE ELEMENT CONCENTRATE 1 ML in D15W-AA 5% with Lytes 2,0... IV SCH (15:00)
[2021-09-10 16:38] LABS: SARS-CoV-2 PCR by NAA Not Detected (NotDetected)
[2021-09-10] MEDS: Lorazepam 2 MG/ML VIAL SLOW IVP PRN (19:46)
[2021-09-10] MEDS: Fluconazole In NaCl,Iso-Osm 400 MG in Premix Bag 1 BAG IVPB SCH (19:48)
[2021-09-11 01:01] LABS: Vancomycin, Trough 25.7 ug/mL
[2021-09-11] MEDS: Morphine 4 MG/ML VIAL SLOW IVP PRN ×6 (01:06→20:35)
[2021-09-11] MEDS: Meropenem 1 GM in Sodium Chloride 0.9% 100 ML IVPB SCH ×3 (01:07→18:42)
[2021-09-11] MEDS: Vancomycin 1 GM in Premix Bag 1 BAG IVPB SCH (01:07)
[2021-09-11] MEDS: Lorazepam 2 MG/ML VIAL SLOW IVP PRN ×2 (03:55→20:35)
[2021-09-11 08:08] LABS: Calcium 8.2 mg/dL (7.8-10.44); Chloride 99 mmol/L (98-107); Potassium 4.7 mmol/L (3.5-5.1); Sodium 132 mmol/L (136-145)
[2021-09-11 08:09] LABS: Glucose 118 mg/dL (70-105)
[2021-09-11 08:10] LABS: Anion Gap 13 mmol/L (10-20); Carbon Dioxide 25 mmol/L (22-29)
[2021-09-11 08:12] LABS: Calc. Creatinine Clearance 143 mL/min (70-130); Phosphorus 3.2 mg/dL (2.3-4.7)
[2021-09-11 08:13] LABS: BUN (Urea Nitrogen) 24 mg/dL (8.9-20.6)
[2021-09-11 08:14] LABS: Magnesium 2.2 mg/dL (1.6-2.6)
[2021-09-11 08:26] LABS: Band 33 % (5-11); Eosinophils 1 % (0-10); Hemoglobin 7.6 g/dL (14.0-18.0); Lymphocytes 14 % (21-51); MDiff Complete? YES; Mean Corpuscular HGB CONC 32.2 g/dL (32.0-36.0); Mean Corpuscular Hemoglobin 30.3 pg (27.0-31.0); Mean Corpuscular Volume 94.1 fL (78.0-98.0); Mean Platelet Volume 7.6 fL (7.4-10.4); Metamyelocyte 11 % (0-0); Monocytes 3 % (0-10); Myelocyte 14 % (0-0); Neutrophil 24 % (42-75); Nucleated RBC 1 % (0); Platelet Count 643 thou/uL (130-400); RBC Distribution Width 13.2 % (11.5-14.5); Red Blood Cell (RBC) Count 2.52 mill/uL (4.70-6.10); White Blood Cell (WBC) Count 18.9 thou/uL (4.8-10.8)
[2021-09-11] MEDS: Famotidine/PF 20 mg/2ml Vial SLOW IVP SCH ×2 (09:18→20:34)
[2021-09-11] MEDS: Enoxaparin Sodium 40 MG/0.4 ML SYRINGE SC SCH (09:19)
[2021-09-11] MEDS: Lantus 1000 UNITS/10 ML VIAL SC SCH (09:19)
[2021-09-11] MEDS: Ondansetron PF 4 MG/2 ML Vial IVP PRN ×2 (09:19→20:34)
[2021-09-11] MEDS: Ketorolac Tromethamine 30 MG/ML VIAL IVP PRN ×2 (09:19→16:34)
[2021-09-11] MEDS: Multivitamins, Adult 10 ML, TRACE ELEMENT CONCENTRATE 1 ML in D15W-AA 5% with Lytes 2,0... IV SCH (14:00)
[2021-09-11] MEDS: Fat Emulsion 250 ML IVPB SCH (14:00)
[2021-09-11] MEDS: Fluconazole In NaCl,Iso-Osm 400 MG in Premix Bag 1 BAG IVPB SCH (20:35)
[2021-09-11] MEDS: Vancomycin HCl 750 MG in Sodium Chloride 0.9% 250 ML 250 ML IVPB SCH (20:35)
[2021-09-12] MEDS: Lantus 1000 UNITS/10 ML VIAL SC SCH ×3 (00:50→21:32)
[2021-09-12] MEDS: Morphine 4 MG/ML VIAL SLOW IVP PRN ×7 (00:51→23:36)
[2021-09-12] MEDS: Meropenem 1 GM in Sodium Chloride 0.9% 100 ML IVPB SCH ×3 (00:55→17:59)
[2021-09-12] MEDS: Vancomycin HCl 750 MG in Sodium Chloride 0.9% 250 ML 250 ML IVPB SCH ×3 (03:35→19:00)
[2021-09-12] MEDS: Ketorolac Tromethamine 30 MG/ML VIAL IVP PRN ×2 (04:08→12:49)
[2021-09-12] MEDS: Lorazepam 2 MG/ML VIAL SLOW IVP PRN ×2 (04:16→12:49)
[2021-09-12 05:33] LABS: Hemoglobin 7.3 g/dL (14.0-18.0); Mean Corpuscular HGB CONC 32.4 g/dL (32.0-36.0); Mean Corpuscular Hemoglobin 30.6 pg (27.0-31.0); Mean Corpuscular Volume 94.7 fL (78.0-98.0); Mean Platelet Volume 7.5 fL (7.4-10.4); Platelet Count 596 thou/uL (130-400); Red Blood Cell (RBC) Count 2.36 mill/uL (4.70-6.10); White Blood Cell (WBC) Count 19.1 thou/uL (4.8-10.8)
[2021-09-12 05:39] LABS: Anion Gap 12 mmol/L (10-20); BUN (Urea Nitrogen) 26 mg/dL (8.9-20.6); Calc. Creatinine Clearance 147 mL/min (70-130); Calcium 8.1 mg/dL (7.8-10.44); Carbon Dioxide 25 mmol/L (22-29); Chloride 98 mmol/L (98-107); Glucose 128 mg/dL (70-105); Magnesium 2.1 mg/dL (1.6-2.6); Phosphorus 3.3 mg/dL (2.3-4.7); Potassium 4.9 mmol/L (3.5-5.1); Sodium 130 mmol/L (136-145)
[2021-09-12 06:13] LABS: Band 35 % (5-11); Eosinophils 3 % (0-10); Lymphocytes 7 % (21-51); MDiff Complete? YES; Metamyelocyte 4 % (0-0); Monocytes 6 % (0-10); Myelocyte 10 % (0-0); Neutrophil 35 % (42-75); Platelet Morphology Comment Appears Increased; Polychromasia SLIGHT = 2-3 cells (100X) (0-2/hpf)
[2021-09-12] MEDS: Enoxaparin Sodium 40 MG/0.4 ML SYRINGE SC SCH (08:25)
[2021-09-12] MEDS: Famotidine/PF 20 mg/2ml Vial SLOW IVP SCH ×2 (08:25→21:30)
[2021-09-12] MEDS: Ondansetron PF 4 MG/2 ML Vial IVP PRN (08:25)
[2021-09-12] MEDS ORDERED: Iopamidol 370 76% 50 ML VIAL FS ONE (11:01)
[2021-09-12] MEDS ORDERED: Iopamidol-370 76% 500 ML 1 ML ONE (11:01)
[2021-09-12] MEDS: Multivitamins, Adult 10 ML, TRACE ELEMENT CONCENTRATE 1 ML in D15W-AA 5% with Lytes 2,0... IV SCH (14:41)
[2021-09-12] MEDS: Fat Emulsion 250 ML IVPB SCH (14:42)
[2021-09-12] MEDS ORDERED: Vancomycin 1 GM in Premix Bag 1 BAG IVPB SCH (19:00)
[2021-09-12] MEDS: Fluconazole In NaCl,Iso-Osm 400 MG in Premix Bag 1 BAG IVPB SCH (21:31)
[2021-09-12] MEDS: Acetaminophen 650 MG Suppository PR PRN (23:41)
[2021-09-13] MEDS: Meropenem 1 GM in Sodium Chloride 0.9% 100 ML IVPB SCH ×3 (01:48→18:22)
[2021-09-13] MEDS ORDERED: Vancomycin 1 GM in Premix Bag 1 BAG IVPB SCH (02:00)
[2021-09-13] MEDS: Morphine 4 MG/ML VIAL SLOW IVP PRN ×8 (02:00→22:34)
[2021-09-13] MEDS: Lorazepam 2 MG/ML VIAL SLOW IVP PRN (03:29)
[2021-09-13 04:50] LABS: Hemoglobin 6.7 g/dL (14.0-18.0); Mean Corpuscular HGB CONC 32.7 g/dL (32.0-36.0); Mean Corpuscular Hemoglobin 30.7 pg (27.0-31.0); Mean Corpuscular Volume 93.8 fL (78.0-98.0); Mean Platelet Volume 7.3 fL (7.4-10.4); Platelet Count 580 thou/uL (130-400); Red Blood Cell (RBC) Count 2.19 mill/uL (4.70-6.10); White Blood Cell (WBC) Count 19.9 thou/uL (4.8-10.8)
[2021-09-13 05:02] LABS: Anion Gap 11 mmol/L (10-20); BUN (Urea Nitrogen) 23 mg/dL (8.9-20.6); Calc. Creatinine Clearance 163 mL/min (70-130); Calcium 8.3 mg/dL (7.8-10.44); Carbon Dioxide 27 mmol/L (22-29); Chloride 95 mmol/L (98-107); Glucose 124 mg/dL (70-105); Potassium 4.6 mmol/L (3.5-5.1); Sodium 128 mmol/L (136-145)
[2021-09-13 05:29] LABS: Band 30 % (5-11); Eosinophils 2 % (0-10); Lymphocytes 24 % (21-51); MDiff Complete? YES; Metamyelocyte 1 % (0-0); Monocytes 8 % (0-10); Myelocyte 8 % (0-0); Neutrophil 27 % (42-75)
[2021-09-13] MEDS: Famotidine/PF 20 mg/2ml Vial SLOW IVP SCH ×2 (09:02→21:29)
[2021-09-13] MEDS: Enoxaparin Sodium 40 MG/0.4 ML SYRINGE SC SCH (09:04)
[2021-09-13] MEDS: Lantus 1000 UNITS/10 ML VIAL SC SCH ×2 (09:13→21:28)
[2021-09-13] MEDS ORDERED: Lidocaine 1% PF 5 ML VIAL ONE (12:48)
[2021-09-13] MEDS ORDERED: Fentanyl 100 MCG/2 ML VIAL ONE (12:48)
[2021-09-13] MEDS ORDERED: Sodium Chloride 0.9% 10 ML ONE (12:48)
[2021-09-13] MEDS ORDERED: Sodium Bicarbonate 2.5 MEQ/5 ML VIAL ONE (12:48)
[2021-09-13] MEDS ORDERED: Iron, Sodium Ferric Gluconate 250 MG in Sodium Chloride 0.9% 250 ML 250 ML IVPB SCH (14:45)
[2021-09-13] MEDS: Vancomycin 1 GM in Premix Bag 1 BAG IVPB SCH ×2 (15:00→21:28)
[2021-09-13] MEDS: Multivitamins, Adult 10 ML, TRACE ELEMENT CONCENTRATE 1 ML in D15W-AA 5% with Lytes 2,0... IV SCH (15:00)
[2021-09-13] MEDS: Fat Emulsion 250 ML IVPB SCH (15:00)
[2021-09-13] MEDS: Ondansetron PF 4 MG/2 ML Vial IVP PRN (19:20)
[2021-09-13 20:50] LABS: Vancomycin, Trough 25.1 ug/mL
[2021-09-13] MEDS: Fluconazole In NaCl,Iso-Osm 400 MG in Premix Bag 1 BAG IVPB SCH (21:17)
[2021-09-13 21:37] LABS: Magnesium 2.1 mg/dL (1.6-2.6)
[2021-09-14] MEDS: Morphine 4 MG/ML VIAL SLOW IVP PRN ×9 (00:21→22:01)
[2021-09-14] MEDS: Lorazepam 2 MG/ML VIAL SLOW IVP PRN ×2 (00:55→13:59)
[2021-09-14] MEDS: Meropenem 1 GM in Sodium Chloride 0.9% 100 ML IVPB SCH ×3 (01:59→17:44)
[2021-09-14] MEDS: Ondansetron PF 4 MG/2 ML Vial IVP PRN ×3 (02:04→16:39)
[2021-09-14 03:59] LABS: Hemoglobin 9.1 g/dL (14.0-18.0); Mean Corpuscular HGB CONC 34.9 g/dL (32.0-36.0); Mean Corpuscular Hemoglobin 33.1 pg (27.0-31.0); Mean Corpuscular Volume 94.7 fL (78.0-98.0); Mean Platelet Volume 7.8 fL (7.4-10.4); Platelet Count 471 thou/uL (130-400); RBC Distribution Width 13.2 % (11.5-14.5); Red Blood Cell (RBC) Count 2.75 mill/uL (4.70-6.10); White Blood Cell (WBC) Count 20.4 thou/uL (4.8-10.8)
[2021-09-14] MEDS: Vancomycin 1 GM in Premix Bag 1 BAG IVPB SCH ×2 (04:00→12:24)
[2021-09-14 05:09] LABS: Band 40 % (5-11); Eosinophils 1 % (0-10); Lymphocytes 12 % (21-51); MDiff Complete? YES; Metamyelocyte 8 % (0-0); Monocytes 2 % (0-10); Myelocyte 10 % (0-0); Neutrophil 27 % (42-75); Platelet Morphology Comment Appears Increased
[2021-09-14] MEDS: Ketorolac Tromethamine 30 MG/ML VIAL IVP PRN (05:20)
[2021-09-14 06:30] LABS: Calcium 8.1 mg/dL (7.8-10.44); Glucose 139 mg/dL (70-105)
[2021-09-14 06:32] LABS: Carbon Dioxide 26 mmol/L (22-29)
[2021-09-14 06:34] LABS: Anion Gap 12 mmol/L (10-20); BUN (Urea Nitrogen) 19 mg/dL (8.9-20.6); Calc. Creatinine Clearance 152 mL/min (70-130); Chloride 94 mmol/L (98-107); Potassium 4.1 mmol/L (3.5-5.1); Sodium 128 mmol/L (136-145)
[2021-09-14] MEDS: Lantus 1000 UNITS/10 ML VIAL SC SCH ×2 (09:11→20:06)
[2021-09-14] MEDS: Famotidine/PF 20 mg/2ml Vial SLOW IVP SCH ×2 (09:12→19:52)
[2021-09-14] MEDS: Enoxaparin Sodium 40 MG/0.4 ML SYRINGE SC SCH (09:14)
[2021-09-14 12:29] LABS: Vancomycin, Trough 28.9 ug/mL
[2021-09-14 12:40] LABS: ALT (SGPT) 186 U/L (8-55); AST (SGOT) 133 U/L (5-34); Albumin 2.3 g/dL (3.5-5.0); Alkaline Phosphatase 186 U/L (40-110); Bilirubin, Direct 8.1 mg/dL (0.1-0.3); Bilirubin, Total 10.5 mg/dL (0.2-1.2); Protein, Total 6.7 g/dL (6.0-8.3)
[2021-09-14] MEDS ORDERED: Vancomycin 1 GM in Premix Bag 1 BAG IVPB SCH ×2 (14:15→21:00)
[2021-09-14] MEDS ORDERED: VANCOMYCIN 1.25 GM/250 ML BAG 1.25 GM in Premix Bag 1 BAG IVPB SCH (14:30)
[2021-09-14] MEDS: VANCOMYCIN 1.25 GM/250 ML BAG 1.25 GM in Premix Bag 1 BAG IVPB SCH (16:53)
[2021-09-14] MEDS: Multivitamins, Adult 10 ML, TRACE ELEMENT CONCENTRATE 1 ML in D15W-AA 5% with Lytes 2,0... IV SCH (17:43)
[2021-09-14] MEDS: Fat Emulsion 250 ML IVPB SCH (17:44)
[2021-09-14] MEDS: Fluconazole In NaCl,Iso-Osm 400 MG in Premix Bag 1 BAG IVPB SCH (19:52)
[2021-09-15] MEDS: Morphine 4 MG/ML VIAL SLOW IVP PRN ×6 (00:09→20:02)
[2021-09-15] MEDS: Meropenem 1 GM in Sodium Chloride 0.9% 100 ML IVPB SCH ×3 (01:39→18:35)
[2021-09-15] MEDS: Lorazepam 2 MG/ML VIAL SLOW IVP PRN ×2 (01:40→11:49)
[2021-09-15] MEDS: VANCOMYCIN 1.25 GM/250 ML BAG 1.25 GM in Premix Bag 1 BAG IVPB SCH ×2 (04:19→17:07)
[2021-09-15 04:46] LABS: Band 34 % (5-11); Eosinophils 1 % (0-10); Hemoglobin 9.3 g/dL (14.0-18.0); Lymphocytes 12 % (21-51); MDiff Complete? YES; Mean Corpuscular HGB CONC 33.6 g/dL (32.0-36.0); Mean Corpuscular Hemoglobin 31.3 pg (27.0-31.0); Mean Corpuscular Volume 93.2 fL (78.0-98.0); Mean Platelet Volume 7.4 fL (7.4-10.4); Metamyelocyte 4 % (0-0); Monocytes 8 % (0-10); Myelocyte 5 % (0-0); Neutrophil 36 % (42-75); Platelet Count 532 thou/uL (130-400); Platelet Morphology Comment Appears Increased; RBC Distribution Width 13.2 % (11.5-14.5); Red Blood Cell (RBC) Count 2.96 mill/uL (4.70-6.10); White Blood Cell (WBC) Count 22.8 thou/uL (4.8-10.8)
[2021-09-15 04:50] LABS: ALT (SGPT) 192 U/L (8-55); AST (SGOT) 134 U/L (5-34); Albumin 2.3 g/dL (3.5-5.0); Alkaline Phosphatase 201 U/L (40-110); Anion Gap 12 mmol/L (10-20); BUN (Urea Nitrogen) 23 mg/dL (8.9-20.6); Bilirubin, Direct 8.3 mg/dL (0.1-0.3); Bilirubin, Total 10.4 mg/dL (0.2-1.2); Calc. Creatinine Clearance 143 mL/min (70-130); Calcium 8.5 mg/dL (7.8-10.44); Carbon Dioxide 27 mmol/L (22-29); Chloride 94 mmol/L (98-107); Globulin 4.7 g/dL (2.4-3.5); Glucose 128 mg/dL (70-105); Lipase 87 U/L (8-78); Phosphorus 3.1 mg/dL (2.3-4.7); Potassium 4.6 mmol/L (3.5-5.1); Sodium 128 mmol/L (136-145)
[2021-09-15] MEDS: Lantus 1000 UNITS/10 ML VIAL SC SCH ×2 (09:17→20:19)
[2021-09-15] MEDS: Famotidine/PF 20 mg/2ml Vial SLOW IVP SCH ×2 (09:27→20:02)
[2021-09-15] MEDS: Enoxaparin Sodium 40 MG/0.4 ML SYRINGE SC SCH (09:27)
[2021-09-15] MEDS: Multivitamins, Adult 10 ML, TRACE ELEMENT CONCENTRATE 1 ML in D15W-AA 5% with Lytes 2,0... IV SCH (17:06)
[2021-09-15] MEDS: Fat Emulsion 250 ML IVPB SCH (17:06)
[2021-09-15] MEDS: Fluconazole In NaCl,Iso-Osm 400 MG in Premix Bag 1 BAG IVPB SCH (20:00)
[2021-09-16] MEDS: Morphine 4 MG/ML VIAL SLOW IVP PRN ×6 (00:01→22:00)
[2021-09-16] MEDS: Meropenem 1 GM in Sodium Chloride 0.9% 100 ML IVPB SCH ×3 (02:38→18:18)
[2021-09-16] MEDS: Lorazepam 2 MG/ML VIAL SLOW IVP PRN ×3 (02:38→20:11)
[2021-09-16] MEDS: VANCOMYCIN 1.25 GM/250 ML BAG 1.25 GM in Premix Bag 1 BAG IVPB SCH (04:30)
[2021-09-16 05:12] LABS: Band 9 % (5-11); Hemoglobin 8.8 g/dL (14.0-18.0); Hypochromia SLIGHT = 6-15 cells (100X) (0-5/hpf); Lymphocytes 21 % (21-51); MDiff Complete? YES; Mean Corpuscular HGB CONC 33.2 g/dL (32.0-36.0); Mean Corpuscular Hemoglobin 31.1 pg (27.0-31.0); Mean Corpuscular Volume 93.9 fL (78.0-98.0); Monocytes 9 % (0-10); Neutrophil 61 % (42-75); Platelet Count 489 thou/uL (130-400); Platelet Morphology Comment Appears Increased; RBC Distribution Width 13.3 % (11.5-14.5); Red Blood Cell (RBC) Count 2.82 mill/uL (4.70-6.10); White Blood Cell (WBC) Count 21.5 thou/uL (4.8-10.8)
[2021-09-16 05:16] LABS: Vancomycin, Trough 26.5 ug/mL
[2021-09-16 05:20] LABS: Albumin 2.2 g/dL (3.5-5.0); Anion Gap 13 mmol/L (10-20); BUN (Urea Nitrogen) 22 mg/dL (8.9-20.6); Calc. Creatinine Clearance 161 mL/min (70-130); Calcium 8.6 mg/dL (7.8-10.44); Carbon Dioxide 25 mmol/L (22-29); Chloride 94 mmol/L (98-107); Glucose 140 mg/dL (70-105); Potassium 4.5 mmol/L (3.5-5.1); Protein, Total 6.7 g/dL (6.0-8.3); Sodium 127 mmol/L (136-145)
[2021-09-16 05:21] LABS: ALT (SGPT) 199 U/L (8-55); AST (SGOT) 134 U/L (5-34); Alkaline Phosphatase 204 U/L (40-110); Globulin 4.5 g/dL (2.4-3.5); Magnesium 1.9 mg/dL (1.6-2.6); Phosphorus 3.2 mg/dL (2.3-4.7)
[2021-09-16] MEDS: Famotidine/PF 20 mg/2ml Vial SLOW IVP SCH ×2 (09:04→20:11)
[2021-09-16] MEDS: Enoxaparin Sodium 40 MG/0.4 ML SYRINGE SC SCH (09:04)
[2021-09-16] MEDS: Lantus 1000 UNITS/10 ML VIAL SC SCH ×2 (09:09→20:29)
[2021-09-16] MEDS: Multivitamins, Adult 10 ML, TRACE ELEMENT CONCENTRATE 1 ML in D15W-AA 5% with Lytes 2,0... IV SCH (14:20)
[2021-09-16] MEDS: Fat Emulsion 250 ML IVPB SCH (14:20)
[2021-09-16] MEDS: Fluconazole In NaCl,Iso-Osm 400 MG in Premix Bag 1 BAG IVPB SCH (20:12)
[2021-09-17] MEDS: Meropenem 1 GM in Sodium Chloride 0.9% 100 ML IVPB SCH ×3 (02:43→18:13)
[2021-09-17] MEDS: Vancomycin HCl 750 MG in Sodium Chloride 0.9% 250 ML 250 ML IVPB SCH ×2 (03:11→15:09)
[2021-09-17] MEDS: Morphine 4 MG/ML VIAL SLOW IVP PRN ×5 (03:12→23:01)
[2021-09-17 05:21] LABS: ALT (SGPT) 202 U/L (8-55); AST (SGOT) 140 U/L (5-34); Albumin 2.2 g/dL (3.5-5.0); Alkaline Phosphatase 207 U/L (40-110); Anion Gap 10 mmol/L (10-20); BUN (Urea Nitrogen) 23 mg/dL (8.9-20.6); Bilirubin, Direct 7.4 mg/dL (0.1-0.3); Bilirubin, Total 9.7 mg/dL (0.2-1.2); Calc. Creatinine Clearance 149 mL/min (70-130); Calcium 8.2 mg/dL (7.8-10.44); Carbon Dioxide 29 mmol/L (22-29); Chloride 93 mmol/L (98-107); Glucose 113 mg/dL (70-105); Magnesium 1.9 mg/dL (1.6-2.6); Phosphorus 3.3 mg/dL (2.3-4.7); Potassium 4.3 mmol/L (3.5-5.1); Protein, Total 6.6 g/dL (6.0-8.3); Sodium 128 mmol/L (136-145)
[2021-09-17 05:49] LABS: Band 5 % (5-11); Eosinophils 1 % (0-10); Hemoglobin 8.4 g/dL (14.0-18.0); Lymphocytes 9 % (21-51); MDiff Complete? YES; Mean Corpuscular HGB CONC 33.6 g/dL (32.0-36.0); Mean Corpuscular Hemoglobin 31.5 pg (27.0-31.0); Mean Corpuscular Volume 93.9 fL (78.0-98.0); Mean Platelet Volume 7.2 fL (7.4-10.4); Metamyelocyte 1 % (0-0); Monocytes 9 % (0-10); Myelocyte 8 % (0-0); Neutrophil 67 % (42-75); Platelet Count 457 thou/uL (130-400); Platelet Morphology Comment Appears Increased; Polychromasia SLIGHT = 2-3 cells (100X) (0-2/hpf); RBC Distribution Width 13.1 % (11.5-14.5); Red Blood Cell (RBC) Count 2.67 mill/uL (4.70-6.10); Stomatocytes MODERATE= 6-15 cells (100X) (0-1/hpf); Target Cells SLIGHT = 2-5 cells (100X) (0-1/hpf); White Blood Cell (WBC) Count 21.7 thou/uL (4.8-10.8)
[2021-09-17] MEDS: Enoxaparin Sodium 40 MG/0.4 ML SYRINGE SC SCH (07:34)
[2021-09-17] MEDS: Lantus 1000 UNITS/10 ML VIAL SC SCH ×2 (07:34→21:11)
[2021-09-17] MEDS: Famotidine/PF 20 mg/2ml Vial SLOW IVP SCH (07:34)
[2021-09-17] MEDS: Octreotide Acetate 100 MCG/ML VIAL SLOW IVP SCH ×3 (11:42→21:09)
[2021-09-17] MEDS: traMADol HCl 50 MG TAB PO SCH ×2 (11:42→18:13)
[2021-09-17] MEDS: Ondansetron PF 4 MG/2 ML Vial IVP PRN ×2 (11:43→23:01)
[2021-09-17] MEDS: Multivitamins, Adult 10 ML, TRACE ELEMENT CONCENTRATE 1 ML in D15W-AA 5% with Lytes 2,0... IV SCH (14:20)
[2021-09-17] MEDS: Fat Emulsion 250 ML IVPB SCH (14:20)
[2021-09-17] MEDS: Lorazepam 2 MG/ML VIAL SLOW IVP PRN (15:09)
[2021-09-17 21:36] LABS: SARS-CoV-2 PCR by NAA Not Detected (NotDetected)
[2021-09-18] MEDS: traMADol HCl 50 MG TAB PO SCH ×5 (00:43→23:12)
[2021-09-18] MEDS: Meropenem 1 GM in Sodium Chloride 0.9% 100 ML IVPB SCH ×2 (01:49→11:43)
[2021-09-18] MEDS: Morphine 4 MG/ML VIAL SLOW IVP PRN ×5 (03:00→19:40)
[2021-09-18] MEDS: Vancomycin HCl 750 MG in Sodium Chloride 0.9% 250 ML 250 ML IVPB SCH (04:11)
[2021-09-18 04:29] LABS: Band 19 % (5-11); Hemoglobin 8.4 g/dL (14.0-18.0); Hypochromia SLIGHT = 6-15 cells (100X) (0-5/hpf); Lymphocytes 8 % (21-51); MDiff Complete? YES; Mean Corpuscular Hemoglobin 30.9 pg (27.0-31.0); Mean Corpuscular Volume 93.6 fL (78.0-98.0); Mean Platelet Volume 6.8 fL (7.4-10.4); Monocytes 9 % (0-10); Neutrophil 64 % (42-75); Platelet Count 457 thou/uL (130-400); Platelet Morphology Comment Appears Increased; RBC Distribution Width 13.2 % (11.5-14.5); Red Blood Cell (RBC) Count 2.71 mill/uL (4.70-6.10); White Blood Cell (WBC) Count 20.4 thou/uL (4.8-10.8)
[2021-09-18 04:35] LABS: Anion Gap 14 mmol/L (10-20); BUN (Urea Nitrogen) 25 mg/dL (8.9-20.6); Calc. Creatinine Clearance 143 mL/min (70-130); Calcium 8.4 mg/dL (7.8-10.44); Carbon Dioxide 28 mmol/L (22-29); Chloride 92 mmol/L (98-107); Glucose 119 mg/dL (70-105); Magnesium 1.9 mg/dL (1.6-2.6); Phosphorus 3.7 mg/dL (2.3-4.7); Potassium 4.5 mmol/L (3.5-5.1); Sodium 129 mmol/L (136-145)
[2021-09-18] MEDS: Lorazepam 2 MG/ML VIAL SLOW IVP PRN ×3 (07:49→20:57)
[2021-09-18] MEDS: Octreotide Acetate 100 MCG/ML VIAL SLOW IVP SCH ×3 (09:54→21:20)
[2021-09-18] MEDS: Enoxaparin Sodium 40 MG/0.4 ML SYRINGE SC SCH (09:55)
[2021-09-18] MEDS: Pantoprazole 40 MG VIAL IVP SCH (09:55)
[2021-09-18] MEDS: Lantus 1000 UNITS/10 ML VIAL SC SCH ×2 (09:55→21:21)
[2021-09-18] MEDS: Fat Emulsion 250 ML IVPB SCH (14:11)
[2021-09-18] MEDS: Multivitamins, Adult 10 ML, TRACE ELEMENT CONCENTRATE 1 ML in D15W-AA 5% with Lytes 2,0... IV SCH (14:11)
[2021-09-18] MEDS ORDERED: Piperacillin/Tazobactam 3.375 GM in Sodium Chloride 0.9% 100 ML IVPB SCH (15:45)
[2021-09-18] MEDS ORDERED: Ampicillin/Sulbactam 3 GM in Sodium Chloride 0.9% 100 ML IVPB SCH (18:00)
[2021-09-18] MEDS: Ondansetron PF 4 MG/2 ML Vial IVP PRN (20:46)
[2021-09-18] MEDS: Piperacillin/Tazobactam 3.375 GM in Sodium Chloride 0.9% 100 ML IVPB SCH (20:49)
[2021-09-18] MEDS ORDERED: metroNIDAZOLE 500 MG in Premix Bag 1 BAG IVPB SCH (22:00)
[2021-09-19] MEDS: Morphine 4 MG/ML VIAL SLOW IVP PRN ×3 (01:01→11:54)
[2021-09-19] MEDS: Lorazepam 2 MG/ML VIAL SLOW IVP PRN ×2 (03:06→15:39)
[2021-09-19] MEDS: Piperacillin/Tazobactam 3.375 GM in Sodium Chloride 0.9% 100 ML IVPB SCH ×3 (03:07→22:31)
[2021-09-19] MEDS: traMADol HCl 50 MG TAB PO SCH ×4 (05:20→23:03)
[2021-09-19 06:44] LABS: Band 20 % (5-11); Hemoglobin 10.6 g/dL (14.0-18.0); Hypochromia SLIGHT = 6-15 cells (100X) (0-5/hpf); Lymphocytes 8 % (21-51); MDiff Complete? YES; Mean Corpuscular Hemoglobin 30.9 pg (27.0-31.0); Mean Corpuscular Volume 93.4 fL (78.0-98.0); Mean Platelet Volume 6.9 fL (7.4-10.4); Monocytes 13 % (0-10); Neutrophil 58 % (42-75); Platelet Count 403 thou/uL (130-400); Platelet Morphology Comment Appears Increased; RBC Distribution Width 13.6 % (11.5-14.5); Reactive Lymphocytes 1 % (0-10); Red Blood Cell (RBC) Count 3.42 mill/uL (4.70-6.10); White Blood Cell (WBC) Count 17.8 thou/uL (4.8-10.8)
[2021-09-19 06:48] LABS: Anion Gap 13 mmol/L (10-20); BUN (Urea Nitrogen) 23 mg/dL (8.9-20.6); Calc. Creatinine Clearance 143 mL/min (70-130); Calcium 8.4 mg/dL (7.8-10.44); Carbon Dioxide 29 mmol/L (22-29); Chloride 90 mmol/L (98-107); Glucose 81 mg/dL (70-105); Magnesium 1.9 mg/dL (1.6-2.6); Phosphorus 3.4 mg/dL (2.3-4.7); Potassium 4.6 mmol/L (3.5-5.1); Sodium 127 mmol/L (136-145)
[2021-09-19] MEDS: Sodium Chloride 1 GM TAB PO SCH ×3 (08:12→22:14)
[2021-09-19] MEDS: Octreotide Acetate 100 MCG/ML VIAL SLOW IVP SCH ×3 (08:13→22:17)
[2021-09-19] MEDS: Enoxaparin Sodium 40 MG/0.4 ML SYRINGE SC SCH (08:13)
[2021-09-19] MEDS: Pantoprazole 40 MG VIAL IVP SCH (08:13)
[2021-09-19] MEDS: Ondansetron PF 4 MG/2 ML Vial IVP PRN (08:35)
[2021-09-19] MEDS: Lantus 1000 UNITS/10 ML VIAL SC SCH ×2 (11:58→23:14)
[2021-09-19] MEDS: Multivitamins, Adult 10 ML, TRACE ELEMENT CONCENTRATE 1 ML in D15W-AA 5% with Lytes 2,0... IV SCH (14:35)
[2021-09-19] MEDS: Fat Emulsion 250 ML IVPB SCH (14:35)
[2021-09-19] MEDS ORDERED: Piperacillin/Tazobactam 3.375 GM VIAL ONE (22:29)
[2021-09-20] MEDS: Morphine 4 MG/ML VIAL SLOW IVP PRN ×4 (00:24→20:39)
[2021-09-20] MEDS: Lorazepam 2 MG/ML VIAL SLOW IVP PRN ×2 (03:50→23:46)
[2021-09-20] MEDS: traMADol HCl 50 MG TAB PO SCH ×4 (05:42→23:45)
[2021-09-20] MEDS: Piperacillin/Tazobactam 3.375 GM in Sodium Chloride 0.9% 100 ML IVPB SCH ×2 (06:28→13:35)
[2021-09-20 06:29] LABS: Band 15 % (5-11); Hemoglobin 7.8 g/dL (14.0-18.0); Hypochromia SLIGHT = 6-15 cells (100X) (0-5/hpf); Lymphocytes 21 % (21-51); MDiff Complete? YES; Mean Corpuscular HGB CONC 31.8 g/dL (32.0-36.0); Mean Corpuscular Hemoglobin 29.9 pg (27.0-31.0); Mean Platelet Volume 7.2 fL (7.4-10.4); Metamyelocyte 1 % (0-0); Monocytes 7 % (0-10); Neutrophil 56 % (42-75); Platelet Count 403 thou/uL (130-400); Platelet Morphology Comment Appears Adequate; RBC Distribution Width 13.6 % (11.5-14.5); Red Blood Cell (RBC) Count 2.62 mill/uL (4.70-6.10); White Blood Cell (WBC) Count 17.2 thou/uL (4.8-10.8)
[2021-09-20 06:43] LABS: Anion Gap 10 mmol/L (10-20); BUN (Urea Nitrogen) 22 mg/dL (8.9-20.6); Calc. Creatinine Clearance 149 mL/min (70-130); Calcium 8.6 mg/dL (7.8-10.44); Carbon Dioxide 31 mmol/L (22-29); Chloride 91 mmol/L (98-107); Glucose 93 mg/dL (70-105); Phosphorus 3.6 mg/dL (2.3-4.7); Potassium 4.5 mmol/L (3.5-5.1); Sodium 127 mmol/L (136-145)
[2021-09-20] MEDS: Ondansetron PF 4 MG/2 ML Vial IVP PRN ×2 (08:35→20:56)
[2021-09-20] MEDS: Enoxaparin Sodium 40 MG/0.4 ML SYRINGE SC SCH (09:46)
[2021-09-20] MEDS: Pantoprazole 40 MG VIAL IVP SCH (09:46)
[2021-09-20] MEDS: Sodium Chloride 1 GM TAB PO SCH ×4 (09:46→20:48)
[2021-09-20] MEDS: Octreotide Acetate 100 MCG/ML VIAL SLOW IVP SCH ×3 (09:47→20:41)
[2021-09-20] MEDS ORDERED: MEROPENEM 1 GM/50 ML 1 GM in Premix Bag 1 BAG IVPB SCH ×2 (14:30→22:00)
[2021-09-20] MEDS ORDERED: Meropenem 1 GM in Sodium Chloride 0.9% 100 ML IVPB SCH ×2 (14:45→22:00)
[2021-09-20] MEDS: Multivitamins, Adult 10 ML, TRACE ELEMENT CONCENTRATE 1 ML in D15W-AA 5% with Lytes 2,0... IV SCH (15:25)
[2021-09-20] MEDS: Fat Emulsion 250 ML IVPB SCH (15:25)
[2021-09-20] MEDS: AMPicillin 2 GM in Sodium Chloride 0.9% 100 ML IVPB SCH ×2 (17:56→20:40)
[2021-09-20] MEDS: Meropenem 1 GM in Sodium Chloride 0.9% 100 ML IVPB SCH (20:40)
[2021-09-21] MEDS: Morphine 4 MG/ML VIAL SLOW IVP PRN ×4 (02:39→20:29)
[2021-09-21] MEDS: AMPicillin 2 GM in Sodium Chloride 0.9% 100 ML IVPB SCH ×4 (02:39→20:30)
[2021-09-21] MEDS: Meropenem 1 GM in Sodium Chloride 0.9% 100 ML IVPB SCH ×3 (06:28→22:16)
[2021-09-21] MEDS: traMADol HCl 50 MG TAB PO SCH ×4 (06:28→23:45)
[2021-09-21 07:35] LABS: Mean Corpuscular HGB CONC 32.1 g/dL (32.0-36.0); Mean Corpuscular Hemoglobin 30.1 pg (27.0-31.0); Mean Corpuscular Volume 93.9 fL (78.0-98.0); Mean Platelet Volume 7.4 fL (7.4-10.4); Platelet Count 499 thou/uL (130-400); RBC Distribution Width 13.9 % (11.5-14.5); Red Blood Cell (RBC) Count 2.65 mill/uL (4.70-6.10); White Blood Cell (WBC) Count 17.9 thou/uL (4.8-10.8)
[2021-09-21 07:42] LABS: INR-International Normal Ratio 1.2; Prothrombin Time 14.9 sec (12.0-14.7)
[2021-09-21 07:43] LABS: PTT 50.8 sec (22.9-36.1)
[2021-09-21 07:51] LABS: ALT (SGPT) 260 U/L (8-55); AST (SGOT) 145 U/L (5-34); Albumin 2.3 g/dL (3.5-5.0); Alkaline Phosphatase 224 U/L (40-110); Anion Gap 12 mmol/L (10-20); BUN (Urea Nitrogen) 19 mg/dL (8.9-20.6); Calc. Creatinine Clearance 165 mL/min (70-130); Calcium 8.4 mg/dL (7.8-10.44); Carbon Dioxide 29 mmol/L (22-29); Chloride 92 mmol/L (98-107); Globulin 4.3 g/dL (2.4-3.5); Glucose 93 mg/dL (70-105); Potassium 4.2 mmol/L (3.5-5.1); Protein, Total 6.6 g/dL (6.0-8.3); Sodium 129 mmol/L (136-145)
[2021-09-21 08:52] LABS: Band 33 % (5-11); Eosinophils 3 % (0-10); Hypochromia SLIGHT = 6-15 cells (100X) (0-5/hpf); Lymphocytes 18 % (21-51); MDiff Complete? YES; Metamyelocyte 2 % (0-0); Monocytes 5 % (0-10); Myelocyte 3 % (0-0); Neutrophil 36 % (42-75); Platelet Morphology Comment Appears Increased; Polychromasia SLIGHT = 2-3 cells (100X) (0-2/hpf)
[2021-09-21] MEDS ORDERED: Pantoprazole 40 MG GRANULES PACKET PER TUBE SCH (09:00)
[2021-09-21] MEDS: Lorazepam 2 MG/ML VIAL SLOW IVP PRN (09:58)
[2021-09-21] MEDS: Sodium Chloride 1 GM TAB PO SCH ×3 (09:59→20:26)
[2021-09-21] MEDS: Saccharomyces boulardii 250 MG CAP PO SCH (09:59)
[2021-09-21] MEDS: Octreotide Acetate 100 MCG/ML VIAL SLOW IVP SCH ×3 (10:01→20:26)
[2021-09-21] MEDS: Enoxaparin Sodium 40 MG/0.4 ML SYRINGE SC SCH (10:01)
[2021-09-21 14:18] LABS: Actual Bicarbonate (HCO3a) 28.4 mEq/L (22-28); Analyzer IN Cardio OR; Base Excess (BEa) 3.4 mEq/L (-2.0 to +3.0); Calcium, Ionized (arterial) 1.06 mmol/L (1.12-1.30); Carboxyhemoglobin (COHb) 1.2 gm% (0.0-3.0); Hemoglobin (Hb) 8.6 g/dL (14.0-18.0); O2 Tension (PaO2), arterial 131.6 mmHg (80.0-100.0); Potassium - ABG Lab 3.38 mmol/L (3.70-5.30); pH, Arterial 7.41 (7.35-7.45)
[2021-09-21 14:21] LABS: Puncture Site Arterial Line
[2021-09-21] MEDS: Fat Emulsion 250 ML IVPB SCH (14:42)
[2021-09-21] MEDS: Multivitamins, Adult 10 ML, TRACE ELEMENT CONCENTRATE 1 ML in CLINIMIX E 5/20 2,000 ML IV SCH (14:43)
[2021-09-22] MEDS: Morphine 4 MG/ML VIAL SLOW IVP PRN ×5 (00:34→20:04)
[2021-09-22] MEDS: Lorazepam 2 MG/ML VIAL SLOW IVP PRN (00:35)
[2021-09-22] MEDS: AMPicillin 2 GM in Sodium Chloride 0.9% 100 ML IVPB SCH (03:05)
[2021-09-22] MEDS: Meropenem 1 GM in Sodium Chloride 0.9% 100 ML IVPB SCH ×3 (06:35→20:05)
[2021-09-22] MEDS: traMADol HCl 50 MG TAB PO SCH ×4 (06:35→23:52)
[2021-09-22] MEDS: Enoxaparin Sodium 40 MG/0.4 ML SYRINGE SC SCH (10:08)
[2021-09-22] MEDS: Octreotide Acetate 100 MCG/ML VIAL SLOW IVP SCH ×3 (10:09→20:06)
[2021-09-22] MEDS: Saccharomyces boulardii 250 MG CAP PO SCH (10:09)
[2021-09-22] MEDS: Sodium Chloride 1 GM TAB PO SCH ×3 (10:09→20:06)
[2021-09-22] MEDS: Ondansetron PF 4 MG/2 ML Vial IVP PRN ×2 (10:37→20:07)
[2021-09-22] MEDS: Multivitamins, Adult 10 ML, TRACE ELEMENT CONCENTRATE 1 ML in CLINIMIX E 5/20 2,000 ML IV SCH (14:35)
[2021-09-22] MEDS: Fat Emulsion 250 ML IVPB SCH (14:35)
[2021-09-23] MEDS: Morphine 4 MG/ML VIAL SLOW IVP PRN ×4 (01:25→19:25)
[2021-09-23 04:18] LABS: Hemoglobin 7.4 g/dL (14.0-18.0); Mean Corpuscular HGB CONC 32.4 g/dL (32.0-36.0); Mean Corpuscular Hemoglobin 30.4 pg (27.0-31.0); Mean Platelet Volume 6.9 fL (7.4-10.4); Platelet Count 498 thou/uL (130-400); RBC Distribution Width 14.2 % (11.5-14.5); Red Blood Cell (RBC) Count 2.43 mill/uL (4.70-6.10); White Blood Cell (WBC) Count 18.5 thou/uL (4.8-10.8)
[2021-09-23 04:26] LABS: Anion Gap 12 mmol/L (10-20); BUN (Urea Nitrogen) 17 mg/dL (8.9-20.6); Calc. Creatinine Clearance 170 mL/min (70-130); Calcium 8.6 mg/dL (7.8-10.44); Carbon Dioxide 30 mmol/L (22-29); Chloride 91 mmol/L (98-107); Glucose 120 mg/dL (70-105); Phosphorus 3.2 mg/dL (2.3-4.7); Potassium 4.1 mmol/L (3.5-5.1); Sodium 129 mmol/L (136-145)
[2021-09-23 05:21] LABS: Band 21 % (5-11); Eosinophils 1 % (0-10); Lymphocytes 9 % (21-51); MDiff Complete? YES; Metamyelocyte 1 % (0-0); Monocytes 7 % (0-10); Myelocyte 8 % (0-0); Neutrophil 53 % (42-75); Platelet Morphology Comment Appears Increased; Stomatocytes SLIGHT = 2-5 cells (100X) (0-1/hpf)
[2021-09-23] MEDS: traMADol HCl 50 MG TAB PO SCH ×4 (05:58→23:14)
[2021-09-23] MEDS: Meropenem 1 GM in Sodium Chloride 0.9% 100 ML IVPB SCH ×3 (05:58→21:24)
[2021-09-23] MEDS: Enoxaparin Sodium 40 MG/0.4 ML SYRINGE SC SCH (08:08)
[2021-09-23] MEDS: Sodium Chloride 1 GM TAB PO SCH ×3 (08:09→21:23)
[2021-09-23] MEDS: Saccharomyces boulardii 250 MG CAP PO SCH (08:09)
[2021-09-23] MEDS: Octreotide Acetate 100 MCG/ML VIAL SLOW IVP SCH ×3 (12:13→21:23)
[2021-09-23] MEDS ORDERED: Multivitamins, Adult 10 ML, TRACE ELEMENT CONCENTRATE 1 ML in D15W-AA 5% with Lytes 2,0... IV SCH (14:00)
[2021-09-23] MEDS: Ondansetron PF 4 MG/2 ML Vial IVP PRN ×2 (14:47→21:36)
[2021-09-23] MEDS: Fat Emulsion 250 ML IVPB SCH (15:28)
[2021-09-23] MEDS: Multivitamins, Adult 10 ML, TRACE ELEMENT CONCENTRATE 1 ML in CLINIMIX E 5/20 2,000 ML IV SCH (16:01)
[2021-09-23 16:28] VITALS: BMI 25.0
[2021-09-23 23:00] VITALS: BP 126/82; TEMP 98.6
[2021-09-24] MEDS: Morphine 4 MG/ML VIAL SLOW IVP PRN (00:22)
[2021-09-24] MEDS ORDERED: Multivitamins, Adult 10 ML, TRACE ELEMENT CONCENTRATE 1 ML in D15W-AA 5% with Lytes 2,0... IV SCH (14:00)
== END 2021-09-24 01:52 | DRG 853 ==
LOC: ERS 04:07 → EEVIPCON 04:22 → ERHOLD 04:22 → SJJU 17:07 → CCU 08-17 16:39 → IMCU/EMU 09-05 12:34 → SJJU 09-18 10:32 → SURG B 09-19 21:44
PROVIDERS: ADMIT Surgery; ATTEND Surgery
PROC: 3E0436Z Introduction of Nutritional Substance into Central Vein, Percutaneous Approach (ICD-10-PCS; 2021-08-16)
PROC: 0D9670Z Drainage of Stomach with Drainage Device, Via Natural or Artificial Opening (ICD-10-PCS; 2021-08-16)
PROC: 0DBF0ZZ Excision of Right Large Intestine, Open Approach (ICD-10-PCS; principal; 2021-08-17)
PROC: 0DB80ZZ Excision of Small Intestine, Open Approach (ICD-10-PCS; 2021-08-17)
PROC: 04HY32Z Insertion of Monitoring Device into Lower Artery, Percutaneous Approach (ICD-10-PCS; 2021-08-17)
PROC: 02HV33Z Insertion of Infusion Device into Superior Vena Cava, Percutaneous Approach (ICD-10-PCS; 2021-08-17)
PROC: 30233K1 Transfusion of Nonautologous Frozen Plasma into Peripheral Vein, Percutaneous Approach (ICD-10-PCS; 2021-08-17)
PROC: 3E033XZ Introduction of Vasopressor into Peripheral Vein, Percutaneous Approach (ICD-10-PCS; 2021-08-17)
PROC: 5A1955Z Respiratory Ventilation, Greater than 96 Consecutive Hours (ICD-10-PCS; 2021-08-17)
PROC: 0DBN0ZZ Excision of Sigmoid Colon, Open Approach (ICD-10-PCS; 2021-08-18)
PROC: 0D1M0Z4 Bypass Descending Colon to Cutaneous, Open Approach (ICD-10-PCS; 2021-08-20)
PROC: 0D1B0ZH Bypass Ileum to Cecum, Open Approach (ICD-10-PCS; 2021-08-20)
PROC: 0WJG0ZZ Inspection of Peritoneal Cavity, Open Approach (ICD-10-PCS; 2021-08-22)
PROC: 2W13X6Z Compression of Abdominal Wall using Pressure Dressing (ICD-10-PCS; 2021-08-22)
PROC: 0DQH0ZZ Repair Cecum, Open Approach (ICD-10-PCS; 2021-08-24)
PROC: 0DQB0ZZ Repair Ileum, Open Approach (ICD-10-PCS; 2021-08-25)
PROC: 0W9F0ZZ Drainage of Abdominal Wall, Open Approach (ICD-10-PCS; 2021-08-25)
PROC: 0DQH0ZZ Repair Cecum, Open Approach (ICD-10-PCS; 2021-08-27)
PROC: 0DQM0ZZ Repair Descending Colon, Open Approach (ICD-10-PCS; 2021-08-27)
PROC: 0DBK0ZZ Excision of Ascending Colon, Open Approach (ICD-10-PCS; 2021-08-29)
PROC: 0DBB0ZZ Excision of Ileum, Open Approach (ICD-10-PCS; 2021-08-29)
PROC: 0D1B0Z4 Bypass Ileum to Cutaneous, Open Approach (ICD-10-PCS; 2021-08-29)
PROC: 0W9G0ZZ Drainage of Peritoneal Cavity, Open Approach (ICD-10-PCS; 2021-08-29)
PROC: 0DQB0ZZ Repair Ileum, Open Approach (ICD-10-PCS; 2021-08-31)
PROC: 0W9D0ZZ Drainage of Pericardial Cavity, Open Approach (ICD-10-PCS; 2021-08-31)
PROC: 02HV33Z Insertion of Infusion Device into Superior Vena Cava, Percutaneous Approach (ICD-10-PCS; 2021-09-07)
PROC: B548ZZA Ultrasonography of Superior Vena Cava, Guidance (ICD-10-PCS; 2021-09-07)
PROC: 30233N1 Transfusion of Nonautologous Red Blood Cells into Peripheral Vein, Percutaneous Approach (ICD-10-PCS; 2021-09-13)
PROC: 0W9G3ZZ Drainage of Peritoneal Cavity, Percutaneous Approach (ICD-10-PCS; 2021-09-13)
DX: A41.9 Sepsis, unspecified organism (principal); R65.21 Severe sepsis with septic shock; K55.029 Acute infarction of small intestine, extent unspecified; K55.049 Acute infarction of large intestine, extent unspecified; J96.00 Acute respiratory failure, unspecified whether with hypoxia or hypercapnia; K65.8 Other peritonitis; K65.1 Peritoneal abscess; S36.438A Laceration of other part of small intestine, initial encounter; S36.892A Contusion of other intra-abdominal organs, initial encounter; N17.9 Acute kidney failure, unspecified; D62 Acute posthemorrhagic anemia; S36.538A Laceration of other part of colon, initial encounter; E46 Unspecified protein-calorie malnutrition; K94.19 Other complications of enterostomy; E87.0 Hyperosmolality and hypernatremia; K63.2 Fistula of intestine; E87.1 Hypo-osmolality and hyponatremia; E87.2 Acidosis; Z20.822 Contact with and (suspected) exposure to COVID-19; K21.9 Gastro-esophageal reflux disease without esophagitis; F17.210 Nicotine dependence, cigarettes, uncomplicated; W24.0XXA Contact with lifting devices, not elsewhere classified, initial encounter; E87.5 Hyperkalemia; E83.42 Hypomagnesemia; E83.51 Hypocalcemia; E83.52 Hypercalcemia; Y83.2 Surgical operation with anastomosis, bypass or graft as the cause of abnormal reaction of the patient, or of later complication, without mention of misadventure at the time of the procedure; E87.6 Hypokalemia; E83.39 Other disorders of phosphorus metabolism; E80.6 Other disorders of bilirubin metabolism; R73.9 Hyperglycemia, unspecified; Y92.148 Other place in prison as the place of occurrence of the external cause; Z68.25 Body mass index [BMI] 25.0-25.9, adult
CPT/HCPCS: 36415; 36416; 36430; 36569; 36600; 49020; 71045; 74018; 74177; 74250; 77002; 80048; 80053; 80074; 80076; 80202; 81001; 82140; 82465; 82533; 82570; 82805; 83605; 83690; 83718; 83721; 83735; 84100; 84134; 84145; 84478; 85007; 85025; 85027; 85049; 85060; 85300; 85362; 85379; 85384; 85610; 85730; 86850; 86870; 86900; 86901; 86905; 86922; 87040; 87070; 87077; 87086; 87149; 87186; 87205; 88307; 88341; 88342; 93970; 94002; 94003; 94640; 99284; A4217; A4649; C1729; C1751; C9113; G0390; J0171; J0290; J0610; J1170; J1450; J1644; J1650; J1720; J1815; J1885; J1940; J1956; J2060; J2185; J2248; J2250; J2270; J2354; J2370; J2405; J2543; J2704; J2916; J3010; J3370; J3420; J3475; J3480; J3490; J7030; J7042; J7050; J7070; J7120; J7620; P9016; P9045; P9047; P9059; Q9961-U8; Q9967; S0020; S0028; U0002; U0003; U0005